=== PATIENT | female | born 1935 | race Caucasian/White ===

== ENCOUNTER 2016-10-31 10:29 | Observation (INO) | payer MEDICARE, OTHER ==
[~2016-10-31] VITALS: Ht 177.8 cm; Wt 114.0 kg
[~2016-10-31 10:29] MED LIST: ACIPHEX20 MG OR; ALL DAY ALLG10 M1 PO; ALPRAZOLAM0.5 MG PO; ALTOPREV20 MG OR; ANTIVERT OR; ARTHRITIS PAIN650 MG PO; ARTIFICIAL TEARS OU; ASPIRIN EC81 MG PO; ASPIRIN LOW81 MG OR; ASPIRIN325 M1 OR; ASPIRIN325 MG OR; ASPIRIN81 MG PO; ATIVAN0.5 MG PO; AVELOX400 MG PO; B-12100 MCG OR; BACLOFEN10 MG PO; BACTRIM DS1 TAB PO; BANOPHEN25 M1 PO; BIOTENE DRY MT; BL ADULT ASA81 MG OR; C 250 PO; CAPOTEN12.5 MG PO; CAPTOPRIL12.5 MG PO; CARAFATE1 G1 OR; CELEBREX100 M1 PO; CELEBREX100 MG PO; CELEBREX200 MG OR; CELEBREX200 MG PO; CETIRIZINE5 MG OR; CHOLEST OFF OR; CIPRO500 MG OR; CIPROFLOXACIN500 M1 PO; CLONAZEPAM0.5 MG PO; CORTISPORIN OP7.5 ML OP; CRANBERRY1 TAB OR; CRESTOR10 MG OR; CYCLOBENZAPR10 MG PO; DARVOCET-N 100100 MG OR; DEMADEX10 MG OR; DICLOFENAC75 MG PO; DIPHEN/ATROP2.5 MG OR; DULCOLAX5 MG PO; DURAGESIC25 MCG/PAT TD; ERYTHROM ETH400 MG OR; FEOSOL65 MG PO; FERROUS SULF325 M1 PO; FISH OIL1000 MG OR; FISH OIL1000 MG PO; FLEXERIL OR; FLEXERIL PO; FLEXERIL10 MG PO; FLEXERIL5 M1 PO; FLEXERIL5 MG PO; FLONASE NASAL50 MCG; FLUTICASONE50 MCG; FLUZONE SPLT1 M1 IM; GARLIC OIL1000 M1 OR; GARLIC1000 MG OR; GLUCOSAMINE1 TA1 OR; GLUCOSAMINE500 M1 OR; HALFPRIN162 MG OR; HYDROCO/AP10 MG/660 OR; IMDUR60 MG OR; IRON325 M1 PO; K-99 OR; KLONOPIN0.5 MG PO; KLONOPIN1 MG OR; KLONOPIN1 MG PO; KLOR-CON M2020 MEQ PO; LASIX 40 MG TAB40 MG PO; LASIX 40 MG40 MG/TAB PO; LASIX40 MG OR; LASIX40 MG PO; LIDODERM5 % EX; LIDODERM5 % TD; LIORESAL10 MG/TA1 PO; LISINOPRIL10 MG PO; LISINOPRIL5 MG PO; LORATADINE D PO; LORATADINE10 M1 PO; LORTAB 10 PO; LORTAB 5 OR; LORTAB 7.5 OR; LORTAB 7.5 PO; LORTAB 7.5-3251 TAB PO; LORTAB 7.57.5 MG PO; LORTAB 7.57.5 MG/TAB OR; LOVASTATIN10 MG PO; LOVASTATIN20 M1 PO; LOVASTATIN40 M1 OR; LOVASTATIN40 M1 PO; LOVASTATIN40 MG OR; LOVASTATIN40 MG PO; MEDDOSEPAK OR; MELOXICAM7.5 MG PO; MEVACOR20 MG OR; MEVACOR40 MG PO; MINITRAN0.2 MG/HR TD; MINITRAN0.4 MG/HR TD; MYKIDZ IRO15 MG/1.5 PO; NAPROSYN500 MG OR; NAPROSYN500 MG PO; NASONEX50 MCG/AC; NITRO-DUR0.4 MG/HR TD; NITROGLYCER SL; NITROGLYCER0.4 MG SL; NITROGLYCER0.4 MG/HR TD; NITROSTAT0.4 MG PO; NITROSTAT0.4 MG SL; OCUVITE ADULT FORMUL PO; OMEGA-31000 MG OR; OMEPRAZOLE10 MG OR; OMEPRAZOLE10 MG PO; OMEPRAZOLE20 M1 PO; OMEPRAZOLE20 MG PO; OMEPRAZOLE40 MG PO; OSCAL 500/1 TAB PO; OSTEO BI-FLX OR; OSTEO BI-FLX PO; PAROXETINE20 MG PO; PAXIL20 MG OR; PAXIL30 MG PO; PAXIL40 MG OR; PERCOCET 5/325M1 TAB PO; POTASSIUM99 MG OR; POTASSIUM99 MG PO; PRILOSEC10 MG OR; PRILOSEC20 MG OR; PRILOSEC20 MG PO; PRILOSEC20 MG/CAP PO; PRIMIDONE250 MG OR; PROPAFENONE150 M1 PO; PROPAFENONE150 MG PO; PROPO-N/APAP1 TA1 OR; PROTONIX40 M2 PO; PROTONIX40 MG OR; PROTONIX40 MG PO; RANITIDINE150 M1 PO; REFRES1 OU; REGLAN10 MG PO; REGLAN5 MG OR; REMIFEMIN OR; RYTHMOL150 MG PO; SM ASPIRIN81 M1 OR; ST JOSEPH75 MG OR; STOOL SOFTENER100 MG PO; TIZANIDINE HCL4 M1 PO; TORSEMIDE10 M1 OR; TORSEMIDE10 MG PO; TRAMADOL HCL50 MG PO; TRANXENE T15 MG PO; TRAZODONE HCL50 MG PO; TRAZODONE150 MG PO; TRAZODONE50 MG PO; TYLENOL 500MG TAB PO; TYLENOL PM OR; ULTRACET OR; ULTRAM50 M1 PO; ULTRAM50 MG OR; ULTRAM50 MG PO; VALTREX1 GM OR; VITAMI18 PO; VITAMIN B-12500 MC2 PO; XANAX0.5 MG OR; ZANTAC150 M1 OR; ZANTAC150 MG OR; ZITHROMAX250 MG PO; ZOFRAN ODT4 MG PO; [UNRECOGNIZED DRUG - OTHER]; [UNRECOGNIZED DRUG - OTHER] OR; [UNRECOGNIZED DRUG - OTHER] PO; asa OR
--- NOTE | 2016-10-31 10:30 | NUR ---
PT ARRIVED VIA EMS FROM HOME. VSS. ASSESSMENT PERFORMED. CALL LIGHT IN REACH.
[2016-10-31 11:59] LABS: HEMATOCRIT 33.4 % (37.0-47.0); HEMOGLOBIN 10.8 g/dl (12.0-16.0); IMMATURE GRANULOCYTES 1.3 % (0.0-1.0); MEAN CELL VOLUME 97.7 fL CALC (80.0-100.0); MEAN CORPUSCULAR HGB 31.6 pG CALC (26.0-32.0); MEAN CORPUSCULAR HGB CONC 32.3 g/L CALC (32.0-36.0); NEUT# 4.76 thou/uL (2.00-7.15); RED BLOOD COUNT 3.42 mill/uL (4.20-5.60); RED CELL DISTRI WIDTH 13.6 % (11.5-15.5)
[2016-10-31 12:11] LABS: ALBUMIN 3.1 g/dL (3.2-5.0); ALKALINE PHOSPHATASE 81 u/l (38-126); AMYLASE < 30 u/l (30-110); ANION GAP 13 (6-22 (CALC)); BILIRUBIN, TOTAL 0.3 mg/dL (0.0-1.4); BUN 19 mg/dL (8-23); BUN/CREATININE RATIO 30 (12-20 (CALC)); CALCIUM 7.3 mg/dL (8.4-10.2); CARBON DIOXIDE 23 mmol/l (22-30); CHLORIDE 111 mmol/l (95-108); CREATININE 0.6 mg/dL (0.5-1.0); GFR > 60 ML/MIN (>=60 (CALC)); GFR FOR AFR.AMER. > 60 ML/MIN (>=60 (CALC)); GLUCOSE 95 mg/dL (82-115); LIPASE 41 u/l (23-300); POTASSIUM 3.7 mmol/l (3.5-5.1); SGOT/AST 29 u/l (9-36); SGPT/ALT 28 u/l (11-66); SODIUM 142 mmol/l (137-146); TOTAL PROTEIN 6.1 g/dL (6.3-8.2)
[2016-10-31 12:22] LABS: MYOGLOBIN 14 ng/mL (0 - 62)
--- NOTE | 2016-10-31 12:30 | NUR ---
PT MEDICATED WITH CIPRO AND IVF INITIATED.
--- NOTE | 2016-10-31 13:00 | NUR ---
PT RESTING ON STRETCHER, C/O HEADACHE. MD NOTIFIED. NO ORDERS RECEIVED
--- NOTE | 2016-10-31 14:00 | NUR ---
ASSUMED CARE OF PATIENT PATIENT RESTING AWAITING LAB AND RADIOLOGY RESULTS PATIENT DENIES ANY PAIN AT THIS TIME
--- NOTE | 2016-10-31 14:45 | NUR ---
PATIENT RESTING AWAITING RADIOLOGY RESULTS PATIENT DENIES ANY DISCOMFORT AT THIS TIME
--- NOTE | 2016-10-31 15:45 | NUR ---
PATIENT RESTING AWAITING LAB RESULTS DENIES ANY PAIN AT THIS TIME PATIENT AMBULATED TO RESTROOM WITH STEADY GAIT
[2016-10-31 16:01] LABS: URINE BILIRUBIN - DIPSTICK NEGATIVE (NEGATIVE); URINE BLOOD DIPSTICK SMALL (NEGATIVE); URINE COLOR YELLOW; URINE GLUCOSE - DIPSTICK NEGATIVE (NEGATIVE); URINE KETONE NEGATIVE (NEGATIVE); URINE PH 6.5 (4.5-8.0); URINE PROTEIN - DIPSTICK NEGATIVE (NEG-TRACE); URINE UROBILINOGEN - DIPSTICK 0.2 E.U./dL (0.2)
[2016-10-31 16:24] LABS: URINE CLARITY CLOUDY; URINE LEUK ESTERASE SMALL (NEGATIVE); URINE NITRITE - DIPSTICK POSITIVE (Negative)
[2016-10-31 16:32] LABS: URINE SQUAMOUS EPITHELIAL CELL FEW EPI/hpf (0-FEW)
[2016-10-31 16:33] LABS: URINE BACTERIA FEW hpf
--- NOTE | 2016-10-31 16:45 | NUR ---
PATIENT RESTING AWAITING LAB RESULTS PATIENT HAS FOOD TRAY AT BEDSIDE AND IS EATING PATIENT DENIES ANY PAIN AT THIS TIME
--- NOTE | 2016-10-31 16:55 | NUR ---
SBAR PRINTED TO [id number] AT [id number].
--- NOTE | 2016-10-31 17:37 | NUR ---
PATIENT RESTING AWAITING ROOM PATIENT DENIES ANY PAIN OR DISCOMFORT AT THIS TIME
--- NOTE | 2016-10-31 18:00 | NUR ---
DINNER TRAY AT BEDSIDE PATIENT VOICES NO COMPLAINT AT THIS TIME
--- NOTE | 2016-10-31 18:10 | NUR ---
RECEIVED REPORT FROM LYDIA BANEGAS
[2016-10-31] MEDS ORDERED: TRAMADOL HCL50 MG PO (18:33)
--- NOTE | 2016-10-31 18:41 | NUR ---
PT BP 185/77, DR BAI NOTIFIED. ORDER RECEIVED FOR PT TO TAKE HER OWN LISINOPRIL 10 MG NOW.
--- NOTE | 2016-10-31 19:03 | NUR ---
REPORT PROVIDED TO LYDIA HAMPTON
--- NOTE | 2016-10-31 19:29 | NUR ---
PATIENT ARRIVED TO THE FLOOR VIA STRETCHER WITH ER STAFF IN ATTENDANCE. PATIENT IS AWAKE ALERT AND ORIENTEDX3. PATIENT ASSISTED FROM THE STRETCHER TO THE BED-UNSTEADY ON HER FEET AND C/O FEELING "DIZZY". TAKING VS AT THIS TIME. WILL CONT TO MONITOR.
[2016-10-31 19:33] VITALS: BP 168/73
--- NOTE | 2016-10-31 19:33 | NUR ---
TAKEN UPSTAIRS ON THE GURNEY BY THIS EDGE BRUSHER. RECEIVED BY BERTA FREEMAN AND KARYNA COATS.
--- NOTE | 2016-10-31 20:00 | NUR ---
PATIENT RESTING IN BED. PATIENT WITH RIGHT UPPER CHEST PORT-A-CATH ACCESSED WITH GOOD BLOOD RETURN. SITE APPEARS HEALTHY AT THIS TIME. PATIENT ORIENTED TO ROOM AND SURROUNDINGS. INSTRUCTED ON USE OF NURSE CALL LIGHT SYSTEM AND TV REMOTE. SAFETY PRECAUTIONS REVIEWED WITH PATIENT. CALL LIGHT IN REACH. WILL CONT TO MONITOR.
--- NOTE | 2016-10-31 22:30 | NUR ---
PM MEDS GIVEN ORDERED. IVF D51/2NS HUNG AND INFUSING AT 75CC/HR. PATIENT REFUSED NITRO PATCH ORDERED-STATES THAT SHE STOPPED IT APPROX 2 WEEKS AGO BECAUSE IT WAS GIVING HER HEADACHES AND THAT DR. ADAMES AWARE THAT SHE STOPPED IT. ASSISTED TO BR TO VOID AND SMALL FORMED BM-MORE STEADY ON HER FEET AT THIS TIME. PATIENT ALSO STATES THAT SHE GOT NO RELIEF FROM ULTRAM THAT SHE GOT EARLIER. RESTING IN BED. WILL CONT TO MONITOR.
[2016-10-31 23:52] VITALS: BP 121/59
--- NOTE | 2016-11-01 02:08 | NUR ---
PATIENT POSITIONED ON HER SIDE AND APPEARS SLEEPING AT THIS TIME. IVF PATENT AND INFUSINGA T 75CC/HR VIA RIGHT PORT. CALL LIGHT IN REACH. WILL CONT TO MONITOR.
--- NOTE | 2016-11-01 04:30 | NUR ---
PT IS REFUSING TO AN XRAY AT THIS TIME SAYS SHE WOULD GO A LITTLE LATER
[2016-11-01 05:18] LABS: HEMATOCRIT 34.5 % (37.0-47.0); IMMATURE GRANULOCYTES 0.5 % (0.0-1.0); MEAN CELL VOLUME 97.2 fL CALC (80.0-100.0); MEAN CORPUSCULAR HGB CONC 31.9 g/L CALC (32.0-36.0); NEUT# 4.68 thou/uL (2.00-7.15); RED BLOOD COUNT 3.55 mill/uL (4.20-5.60); RED CELL DISTRI WIDTH 13.5 % (11.5-15.5)
[2016-11-01 05:37] LABS: ALBUMIN 3.1 g/dL (3.2-5.0); ALKALINE PHOSPHATASE 72 u/l (38-126); ANION GAP 11 (6-22 (CALC)); BILIRUBIN, TOTAL 0.2 mg/dL (0.0-1.4); BUN 14 mg/dL (8-23); BUN/CREATININE RATIO 20 (12-20 (CALC)); CALCIUM 8.7 mg/dL (8.4-10.2); CALCULATED LDLCHOLESTEROL 113 mg/dL (62-129 (CALC)); CARBON DIOXIDE 26 mmol/l (22-30); CHLORIDE 108 mmol/l (95-108); CREATININE 0.7 mg/dL (0.5-1.0); GFR > 60 ML/MIN (>=60 (CALC)); GFR FOR AFR.AMER. > 60 ML/MIN (>=60 (CALC)); GLUCOSE 100 mg/dL (82-115); HDL CHOLESTEROL 45 mg/dL (>=40); POTASSIUM 4.4 mmol/l (3.5-5.1); SGOT/AST 21 u/l (9-36); SGPT/ALT 35 u/l (11-66); SODIUM 141 mmol/l (137-146); TOTAL CHOLESTEROL 189 mg/dl (0-199); TOTAL PROTEIN 5.8 g/dL (6.3-8.2); TOTAL TRIGLYCERIDES 150 mg/dl (30-149); VLDL CHOLESTROL 30 mg/dl (0-48 (CALC))
--- NOTE | 2016-11-01 05:49 | NUR ---
PATIENT APPEARS SLEEPING AT THIS TIME. CALL LIGHT IN REACH. WILL CONT TO MONITOR.
--- NOTE | 2016-11-01 07:00 | NUR ---
RECEIVED BEDSIDE REPORT FROM BERTA FREEMAN. PT IN BATHROOM BEING ASSISTED BY MARCO NICHOLSON TO SHOWER. RESPS EVEN AND UNLABORED ON ROOM AIR, TELE MONITOR IN PLACE. PLAN OF CARE DISCUSSED. SAFETY PRECAUTIONS REINFORCED. BED IN LOWEST POSITION WITH WHEELS LOCKED. CALL LIGHT WITHIN REACH. WILL CONTINUE TO MONITOR.
--- NOTE | 2016-11-01 08:20 | NUR ---
PT SITTING IN BEDSIDE RECLINER. DR ADAMES IN TO SEE PT, NEW ORDERS RECEIVED.
[2016-11-01 08:50] VITALS: BP 122/68
[2016-11-01 11:08] VITALS: BP 111/61
--- NOTE | 2016-11-01 12:00 | NUR ---
IN HIGH FOWLERS EATING LUNCH, VISITOR AT BEDSIDE. RESPS EVEN AND UNLABORED ON ROOM AIR, TELE MONITOR IN PLACE. VOICES NO C/O AT THIS TIME. PORT TO RIGHT UPPER CHEST INFUSING WITHOUT DIFFICULTY, SITE APPEARS HEALTHY. CALL LIGHT WITHIN REACH. WILL CONTINUE TO MONITOR.
--- NOTE | 2016-11-01 13:45 | NUR ---
MEDICATED WITH TRAMADOL PO FOR C/O 12/26 NECK AND SHOULDER PAIN. WILL CONTINUE TO MONITOR. CALL LIGHT WITHIN REACH.
[2016-11-01 15:30] VITALS: BP 118/62
--- NOTE | 2016-11-01 16:33 | NUR ---
RESTING IN BED WITH EYES CLOSED, AWAKENS EASILY. RESPS EVEN AND UNLABORED ON ROOM AIR, TELE MONITOR IN PLACE. DENEIS PAIN AT THIS TIME. CALL LIGHT WITHIN REACH. ENCOURAGED PT TO CALL FOR ANY NEEDS.
--- NOTE | 2016-11-01 17:10 | NUR ---
C/O "CHEST PRESSURE" OF SUDDEN ONSET. PHONE CALL TO DR ADAMES. NEW ORDERS RECEIVED. STAT EKG, ROSANGELA COCKTAIL PO, XANAX PO.
--- NOTE | 2016-11-01 17:50 | NUR ---
MEDICATED WITH ROSANGELA COCKTAIL PO AND XANAX 0.5 PO FOR RELIEF OF "CHEST PRESSURE." REPORTS FEELING BETTER AFTER HAVING PASSED GAS. EKG COMPLETED BY RESP THERAPY.
[2016-11-01 19:40] VITALS: BP 121/57
--- NOTE | 2016-11-01 19:45 | NUR ---
PATIENT RESTING IN BED AT THIS TIME-AWAKE ALERT AND ORIENTEDX3. PATIENT STATES THAT HER FOOD IS NOT GOING DOWN RIGHT AND IS ASKING FOR A "TUBE INTO HER STOMACH". EXPLAINED TO PATIENT THAT USUALLY WE TRY OTHER ALTERATIVE METHODS OF TREATMENT BEFORE PLACING A NG TUBE. WILL CALL DR. ADAMES FOR FURTHER TREATMENT. PATIENT STATES THAT SHE DID HAVE A FORMED BM TODAY. ABD IS SOFT WITH BS+. PATIENT CONT TO HAVE SEVERE SUZANNA LE EDEMA WITH THE RIGHT GREATER THAN THE LEFT AT THIS TIME. PATIENT WITH IVF TO RIGHT UPPER CHEST PORT AT 75CC/HR. SITE APPEARS HEALTHY AT THIS TIME. SAFETY PRECAUTIONS REINFORCED. CALL LIGHT IN REACH. WILL CONT TO MONITOR.
--- NOTE | 2016-11-01 20:00 | NUR ---
BED ALARMS ARE CONSTANTLY GOING OFF-WHEN REAPPLIED PATIENT EITHER ALARMS THEM AGAIN OR TAKES THEM AND/OR HER TELE OFF. PATIENT WITH IV SITE TO RIGHT WRIST INTACT WITH IVF D51/2NS PATENT AND INFUSING AT 75CC/HR. SITE APPEARS HEALTHY AT THIS TIME. DR. ADAMES CALLED AND ORDERS RECIEVED. AWAITING PROFILE ON EMAR. WILL MEDICATE WHEN ABLE. BED ALRMS IN PLACE. WILL CONT TO MONITOR.
--- NOTE | 2016-11-01 20:23 | NUR ---
PATIENT ASSISTED TO VOID CLEAR YELLOW URINE. PATIENT IS AGITATED AND RESTLESS. PATIENT IS VERY [place] AND TALKING TO STAFF INAPPROPRIATELY. PATIENT IS CONFUSED TO PLACE AND TIME. CONSTANTLY REPEATING THE QUESTIONS WITH THE STAFF. PATIENT ASSISTED BACK TO BED. PATIENT MEDICATED FOR AGITATION WITH ATIVAN 1MG IVP ORDERED. CALL LIGHT IN REACH. BED ALARMSX2 IN PLACE FOR PATIENT SAFETY. WILL CONT TO MONITOR.
--- NOTE | 2016-11-01 21:08 | NUR ---
PATIENT MEDICATED WITH ZOFRAN 4MG IVP ORDERED FOR NAUSEA. PATIENT OINSTRUCTED NPO EXCEPT FOR SIP OF H2O WITH PO MEDS. IVF INCREASED TO 100CC/HR ORDERD. PATIENT MEDICATED WITH ULTRAM FOR CHEST AND EPIGASTRIC PAIN ORDERED. PATIENT CONT TO REFUSE NITRO PATCH THAT IS ORDERED IT CAUSES HER HEADACHES. ASSISTED UP TO BR TO VOID AND THEN BACK TO BED. SAFETY PRECAUTIONS REINFORCED. CALL LIGHT IN REACH. WILL CONT TO MONITOR.
--- NOTE | 2016-11-01 22:07 | NUR ---
APPEARS SLEEPING AT THIS TIME POSITIONED ON HER SIDE WITH EYES CLOSED. CALL LIGHT IN REACH. WILL CONT TO MONITOR.
[2016-11-01 23:50] VITALS: BP 132/69
--- NOTE | 2016-11-02 00:27 | NUR ---
PATIENT CALLED AND ASSISTED TO BR TO VOID AND THEN RETURNED TO BED. PATIENT REMAINS NPO AT THIS TIME. IVF ORDERED. SAFETY PRECAUTIONS REINFORCED. CALL LIGHT IN REACH. WILL CONT TO MONITOR.
[2016-11-02 04:00] VITALS: BP 112/61
--- NOTE | 2016-11-02 04:41 | NUR ---
PATIENT ASSISTED TO THE BR TO VOID AND THEN BACK TO BED. LAB WORK DRAWN FROM RIGHT UPPER CHEST PORT WITHOUT ANY DIFFICULTY. PORT FLUSHED PER [facility] PROTOCOL. IVF AT 100CC/HR. PATIENT REMAINS NPO ORDERED. NO FURTHER COMPLAINTS OF PAIN AT THIS TIME. SAFETY PRECAUTIONS REINFORCED. CALL LIGHT IN REACH. WILL CONT TO MONITOR.
[2016-11-02 05:23] LABS: HEMATOCRIT 37.9 % (37.0-47.0); IMMATURE GRANULOCYTES 0.4 % (0.0-1.0); MEAN CELL VOLUME 97.9 fL CALC (80.0-100.0); MEAN CORPUSCULAR HGB CONC 31.7 g/L CALC (32.0-36.0); NEUT# 4.02 thou/uL (2.00-7.15); RED BLOOD COUNT 3.87 mill/uL (4.20-5.60); RED CELL DISTRI WIDTH 13.8 % (11.5-15.5)
[2016-11-02 05:49] LABS: ANION GAP 15 (6-22 (CALC)); BUN 9 mg/dL (8-23); BUN/CREATININE RATIO 12 (12-20 (CALC)); CARBON DIOXIDE 26 mmol/l (22-30); CHLORIDE 105 mmol/l (95-108); CREATININE 0.7 mg/dL (0.5-1.0); GFR > 60 ML/MIN (>=60 (CALC)); GFR FOR AFR.AMER. > 60 ML/MIN (>=60 (CALC)); GLUCOSE 103 mg/dL (82-115); POTASSIUM 4.5 mmol/l (3.5-5.1); SODIUM 141 mmol/l (137-146)
--- NOTE | 2016-11-02 07:00 | NUR ---
RECEIVED BEDSIDE REPORT FROM BERTA FREEMAN. RESTING ON LEFT SIDE WITH EYES CLOSED, AWAKENS EASILY. RESPS EVEN AND UNLABORED ON ROOM AIR, TELE MONITOR IN PLACE. REINFORCED NPO STATUS. DENIES NAUSEA OR ABD PAIN. PORT RU CHEST INFUSING WITHOUT DIFFICULTY, SITE APPEARS HEALTHY. PLAN OF CARE DISCUSSED. SAFETY PRECAUTIONS REINFORCED. BED IN LOWEST POSITION WITH WHEELS LOCKED. CALL LIGHT WITHIN REACH. WILL CONTINUE TO MONITOR.
[2016-11-02 07:51] VITALS: BP 128/66
--- NOTE | 2016-11-02 08:30 | NUR ---
DR ADAMES IN WITH PT, NEW ORDERS RECEIVED.
[2016-11-02 10:06] LABS: TSH, 3RD GENERATION 4.04 uIU/mL (0.47 - 4.68)
[2016-11-02 11:25] VITALS: BP 127/62
--- NOTE | 2016-11-02 12:55 | NUR ---
TO RADIOLOGY IN STABLE CONDITION VIA WHEELCHAIR ACCOMPANIED BY VOLUNTEER.
--- NOTE | 2016-11-02 13:32 | NUR ---
FROM RADIOLOGY VIA WHEELCHAIR ACCOMPANIED BY VOLUNTEER.
--- NOTE | 2016-11-02 14:00 | NUR ---
RESTING IN SUPINE POSITION. C/O 5/10 LEFT FLANK PAIN. MEDICATED WITH TRAMADOL 50MG PO FOR RELIEF. PORT RIGHT UPPER CHEST INFUSING WELL, SITE APPEARS HEALTHY. CALL LIGHT WITHIN REACH.
[2016-11-02 15:26] VITALS: BP 133/70
--- NOTE | 2016-11-02 18:00 | NUR ---
DR ADAMES IN TO SEE PT, NEW ORDERS RECEIVED.
--- NOTE | 2016-11-02 18:25 | NUR ---
TOLERATING FULL LIQUID DIET WITHOUT C/O NAUSEA OR DYSPHAGIA.
[2016-11-02 19:35] VITALS: BP 121/61
--- NOTE | 2016-11-02 20:00 | NUR ---
PATIENT RESTING IN BED AT THIS TIME. AWAKE ALERT AND ORIENTEDX3. PATIENT WITH RIGHT UPPER CHEST PORT WITH IVF D51/2NS PATENT AND INFUSING AT 60CC/HR. PATIENT STATES THAT SHE IS NOW TAKING FULL LIQUID DIET AND DID TOLERATE WELL AT DINNER-NO FURTHER C/O GI SYMPTOMS TONIGHT. SAFETY PRECAUTIONS REINFORCED. CALL LIGHT IN REACH. WILL CONT TO MONITOR.
--- NOTE | 2016-11-02 21:34 | NUR ---
PATIENT STATES NO IMPROVEMENT OF BACK TIME AT THIS TIME EVEN AFTER TAKING ULTRAM ORDERED-STILL 12/26. CALL LIGHT IN REACH. WILL CONT TO MONITOR.
--- NOTE | 2016-11-02 22:58 | NUR ---
LAB WORK DRAWN ORDERED-AWAITING RESULTS. PATIENT BREATHING IS IMPROVED AT THIS TIME. PATIENT MEDICATED WITH XANAX ORDERED AND WITH SONATA FOR SLEEP. WILL CONT TO MONITOR.
[2016-11-02 23:48] VITALS: BP 114/62
--- NOTE | 2016-11-03 00:19 | NUR ---
PATIENT APPEARS SLEEPING AT THIS TIME. PATIENT POSITIONED ON HER SIDE WITH EYES CLOSED. CALL LIGHT IN REACH. WILL CONT TO MONITOR.
[2016-11-03 03:20] VITALS: BP 113/60
--- NOTE | 2016-11-03 04:24 | NUR ---
PATIEMT APPEARS SLEEPING AT THIS TIME WITH EYES CLOSED. CALL LIGHT IN REACH. WILL CONT TO MONITOR.
--- NOTE | 2016-11-03 07:00 | NUR ---
RECEIVED BEDSIDE REPORT FROM BERTA FREEMAN. PT SITTING IN BEDSIDE RECLINER WITH BILAT FEET ELEVATED. RESPS EVEN AND UNLABORED ON ROOM AIR, TELE MONITOR IN PLACE. PORT RIGHT UPPER CHEST INFUSING WITHOUT DIFFICULTY, SITE APPEARS HEALTHY. DENIES PAIN OR DISCOMFORT. PLAN OF CARE DISCUSSED. SAFETY PRECAUTIONS REINFORCED. BED IN LOWEST POSITION WITH WHEELS LOCKED. CALL LIGHT WITHIN REACH. ENCOURAGED PT TO CALL FOR ANY NEEDS.
[2016-11-03 08:40] VITALS: BP 114/58
--- NOTE | 2016-11-03 08:55 | NUR ---
DR ADAMES IN TO SEE PT, NEW ORDERS RECEIVED.
[2016-11-03] MEDS ORDERED: MEVACOR40 MG PO (09:04)
[2016-11-03] MEDS ORDERED: NITROSTAT0.4 MG SL (09:04)
[2016-11-03] MEDS ORDERED: PROPAFENONE150 M1 PO (09:04)
[2016-11-03] MEDS ORDERED: ARTIFICIAL TEARS OU (09:05)
[2016-11-03] MEDS ORDERED: PRILOSEC20 MG PO (09:06)
[2016-11-03] MEDS ORDERED: OCUVITE ADULT FORMUL PO (09:06)
[2016-11-03] MEDS ORDERED: PROTONIX40 MG PO (09:11)
[2016-11-03 09:20] VITALS: BP 114/58
--- NOTE | 2016-11-03 12:00 | NUR ---
PORT TO RIGHT UPPER CHEST DEACCESSED PER HOSPITAL POLICY.
--- NOTE | 2016-11-03 13:10 | NUR ---
Discharge instructions given. Patient verbalizes understanding of same. Discharged in stable condition via Wheelchair to Home with family. All belongings sent with pt.
== END 2016-11-03 13:10 | disposition home or self-care (01) ==
LOC: ENPENDDIS → ED 10:29 → ED-I 16:33 → ED 16:48 → MS2 16:49
PROVIDERS: Emergency Medicine; ADMIT Internal Medicine Geriatric Medicine; ATTEND Internal Medicine Geriatric Medicine
DX: R07.89 Other chest pain (principal); B34.9 Viral infection, unspecified; K22.0 Achalasia of cardia; Q39.8 Other congenital malformations of esophagus; I12.9 Hypertensive chronic kidney disease with stage 1 through stage 4 chronic kidney disease, or unspecified chronic kidney disease; E11.22 Type 2 diabetes mellitus with diabetic chronic kidney disease; N18.9 Chronic kidney disease, unspecified; I48.91 Unspecified atrial fibrillation; K21.9 Gastro-esophageal reflux disease without esophagitis; F41.9 Anxiety disorder, unspecified; F32.9 Major depressive disorder, single episode, unspecified; E03.9 Hypothyroidism, unspecified; M19.012 Primary osteoarthritis, left shoulder; E78.5 Hyperlipidemia, unspecified; M54.9 Dorsalgia, unspecified; E86.0 Dehydration; M17.12 Unilateral primary osteoarthritis, left knee; R13.10 Dysphagia, unspecified; Z95.0 Presence of cardiac pacemaker; Z87.11 Personal history of peptic ulcer disease

== ENCOUNTER 2016-12-25 05:53 | Observation (INO) | payer MEDICARE, OTHER ==
[~2016-12-25] VITALS: Ht 180.3 cm; Wt 106.6 kg
[2016-12-25] MEDS ORDERED: LASIX 40 MG TAB40 MG PO (06:19)
[2016-12-25] MEDS ORDERED: TRAZODONE50 MG PO (06:20)
[2016-12-25] MEDS ORDERED: LISINOPRIL10 M1 PO (06:20)
[2016-12-25] MEDS ORDERED: ASPIRIN 81 LOW81 MG PO (06:21)
[2016-12-25] MEDS ORDERED: METOLAZONE2.5 MG PO (06:22)
[2016-12-25] MEDS ORDERED: DESYREL50 MG PO (06:23)
[2016-12-25] MEDS ORDERED: GNP POTASSIUM99 MG PO (06:23)
[2016-12-25 06:34] LABS: HEMOGLOBIN 12.8 g/dl (12.0-16.0); IMMATURE GRANULOCYTES 0.4 % (0.0-1.0); MEAN CELL VOLUME 93.8 fL CALC (80.0-100.0); MEAN CORPUSCULAR HGB 30.8 pG CALC (26.0-32.0); MEAN CORPUSCULAR HGB CONC 32.8 g/L CALC (32.0-36.0); NEUT# 4.73 thou/uL (2.00-7.15); RED BLOOD COUNT 4.16 mill/uL (4.20-5.60); RED CELL DISTRI WIDTH 13.6 % (11.5-15.5)
[2016-12-25 06:48] LABS: ALBUMIN 4.3 g/dL (3.2-5.0); ALKALINE PHOSPHATASE 97 u/l (38-126); AMYLASE 47 u/l (30-110); ANION GAP 16 (6-22 (CALC)); BILIRUBIN, TOTAL 0.5 mg/dL (0.0-1.4); BUN 24 mg/dL (8-23); BUN/CREATININE RATIO 27 (12-20 (CALC)); CALCIUM 9.2 mg/dL (8.4-10.2); CARBON DIOXIDE 28 mmol/l (22-30); CHLORIDE 101 mmol/l (95-108); CREATININE 0.9 mg/dL (0.5-1.0); GFR 60 ML/MIN (>=60 (CALC)); GFR FOR AFR.AMER. > 60 ML/MIN (>=60 (CALC)); GLUCOSE 125 mg/dL (82-115); LIPASE 53 u/l (23-300); POTASSIUM 4.1 mmol/l (3.5-5.1); SGOT/AST 35 u/l (9-36); SGPT/ALT 42 u/l (11-66); SODIUM 141 mmol/l (137-146); TOTAL PROTEIN 7.9 g/dL (6.3-8.2)
[2016-12-25 07:00] LABS: MYOGLOBIN 32 ng/mL (0 - 62)
[2016-12-25 08:42] LABS: URINE BILIRUBIN - DIPSTICK NEGATIVE (NEGATIVE); URINE BLOOD DIPSTICK NEGATIVE (NEGATIVE); URINE CLARITY CLEAR; URINE COLOR YELLOW; URINE GLUCOSE - DIPSTICK NEGATIVE (NEGATIVE); URINE KETONE NEGATIVE (NEGATIVE); URINE LEUK ESTERASE NEGATIVE (NEGATIVE); URINE NITRITE - DIPSTICK NEGATIVE (Negative); URINE PH 5.5 (4.5-8.0); URINE PROTEIN - DIPSTICK NEGATIVE (NEG-TRACE); URINE UROBILINOGEN - DIPSTICK 0.2 E.U./dL (0.2)
[2016-12-25 09:28] VITALS: BP 147/84
[2016-12-25 15:30] VITALS: BP 130/71
[2016-12-25 19:00] VITALS: BP 136/76
[2016-12-25 23:26] VITALS: BP 129/66
[2016-12-26 04:15] VITALS: BP 155/75
[2016-12-26 07:49] VITALS: BP 143/59
[2016-12-26 09:41] LABS: HEMATOCRIT 39.2 % (37.0-47.0); HEMOGLOBIN 12.7 g/dl (12.0-16.0); IMMATURE GRANULOCYTES 0.4 % (0.0-1.0); MEAN CELL VOLUME 94.9 fL CALC (80.0-100.0); MEAN CORPUSCULAR HGB 30.8 pG CALC (26.0-32.0); MEAN CORPUSCULAR HGB CONC 32.4 g/L CALC (32.0-36.0); NEUT# 4.21 thou/uL (2.00-7.15); RED BLOOD COUNT 4.13 mill/uL (4.20-5.60); RED CELL DISTRI WIDTH 13.8 % (11.5-15.5)
[2016-12-26 10:00] LABS: ALBUMIN 4.2 g/dL (3.2-5.0); ALKALINE PHOSPHATASE 88 u/l (38-126); ANION GAP 14 (6-22 (CALC)); BILIRUBIN, TOTAL 0.5 mg/dL (0.0-1.4); BUN 22 mg/dL (8-23); BUN/CREATININE RATIO 29 (12-20 (CALC)); CALCIUM 8.8 mg/dL (8.4-10.2); CALCULATED LDLCHOLESTEROL 159 mg/dL (62-129 (CALC)); CARBON DIOXIDE 28 mmol/l (22-30); CHLORIDE 101 mmol/l (95-108); CHOLESTEROL HDL RATIO 4.3 (<4.4 (CALC)); CREATININE 0.8 mg/dL (0.5-1.0); GFR > 60 ML/MIN (>=60 (CALC)); GFR FOR AFR.AMER. > 60 ML/MIN (>=60 (CALC)); GLUCOSE 132 mg/dL (82-115); HDL CHOLESTEROL 57 mg/dL (>=40); SGOT/AST 35 u/l (9-36); SGPT/ALT 44 u/l (11-66); SODIUM 140 mmol/l (137-146); TOTAL CHOLESTEROL 245 mg/dl (0-199); TOTAL PROTEIN 7.3 g/dL (6.3-8.2); TOTAL TRIGLYCERIDES 144 mg/dl (30-149); VLDL CHOLESTROL 29 mg/dl (0-48 (CALC))
[2016-12-26 11:11] VITALS: BP 143/78
[2016-12-26 15:24] VITALS: BP 136/69
== END 2016-12-26 18:10 | disposition home or self-care (01) ==
LOC: ENPENDDIS → ED 05:53 → ED-I 08:18 → ED 08:45 → MS2 08:46
PROVIDERS: ADMIT Internal Medicine Geriatric Medicine; ATTEND Internal Medicine Geriatric Medicine
DX: R07.89 Other chest pain (principal); I25.119 Atherosclerotic heart disease of native coronary artery with unspecified angina pectoris; I48.91 Unspecified atrial fibrillation; K21.9 Gastro-esophageal reflux disease without esophagitis; K27.9 Peptic ulcer, site unspecified, unspecified as acute or chronic, without hemorrhage or perforation; E03.9 Hypothyroidism, unspecified; E11.22 Type 2 diabetes mellitus with diabetic chronic kidney disease; I12.9 Hypertensive chronic kidney disease with stage 1 through stage 4 chronic kidney disease, or unspecified chronic kidney disease; N18.9 Chronic kidney disease, unspecified; E78.5 Hyperlipidemia, unspecified; M19.012 Primary osteoarthritis, left shoulder; K22.0 Achalasia of cardia; T82.598A Other mechanical complication of other cardiac and vascular devices and implants, initial encounter; Y83.8 Other surgical procedures as the cause of abnormal reaction of the patient, or of later complication, without mention of misadventure at the time of the procedure; Z95.0 Presence of cardiac pacemaker

== ENCOUNTER 2017-03-30 08:36 | Emergency (ER) | payer MEDICARE, OTHER ==
[~2017-03-30] VITALS: Ht 180.3 cm; Wt 109.0 kg
[~2017-03-30 08:36] MED LIST changes: +ASPIRIN 81 LOW81 MG PO; +DESYREL50 MG PO; +GNP POTASSIUM99 MG PO; +LISINOPRIL10 M1 PO; +METOLAZONE2.5 MG PO
[2017-03-30 11:05] LABS: HEMATOCRIT 37.6 % (37.0-47.0); IMMATURE GRANULOCYTES 0.5 % (0.0-1.0); MEAN CELL VOLUME 95.2 fL CALC (80.0-100.0); MEAN CORPUSCULAR HGB 30.4 pG CALC (26.0-32.0); MEAN CORPUSCULAR HGB CONC 31.9 g/L CALC (32.0-36.0); NEUT# 4.45 thou/uL (2.00-7.15); RED BLOOD COUNT 3.95 mill/uL (4.20-5.60); RED CELL DISTRI WIDTH 13.9 % (11.5-15.5)
[2017-03-30 11:43] LABS: ALBUMIN 4.1 g/dL (3.2-5.0); ALKALINE PHOSPHATASE 80 u/l (38-126); ANION GAP 16 (6-22 (CALC)); BILIRUBIN, TOTAL 0.7 mg/dL (0.0-1.4); BUN 15 mg/dL (8-23); BUN/CREATININE RATIO 20 (12-20 (CALC)); CALCIUM 9.2 mg/dL (8.4-10.2); CARBON DIOXIDE 22 mmol/l (22-30); CHLORIDE 108 mmol/l (95-108); CREATININE 0.8 mg/dL (0.5-1.0); GFR > 60 ML/MIN (>=60 (CALC)); GFR FOR AFR.AMER. > 60 ML/MIN (>=60 (CALC)); GLUCOSE 110 mg/dL (82-115); POTASSIUM 4.6 mmol/l (3.5-5.1); SGOT/AST 33 u/l (9-36); SGPT/ALT 41 u/l (11-66); SODIUM 141 mmol/l (137-146); TOTAL PROTEIN 7.3 g/dL (6.3-8.2)
[2017-03-30] MEDS ORDERED: FLEXERIL PO (12:18)
[2017-03-30] MEDS ORDERED: ULTRAM50 M1 PO (12:18)
[2017-03-30 12:33] VITALS: BP 178/87
== END 2017-03-30 13:24 | disposition home or self-care (01) ==
LOC: ED 08:36
PROVIDERS: Emergency Medicine
DX: M17.12 Unilateral primary osteoarthritis, left knee (principal); M47.22 Other spondylosis with radiculopathy, cervical region; M79.605 Pain in left leg; R22.42 Localized swelling, mass and lump, left lower limb; I10 Essential (primary) hypertension; Z95.0 Presence of cardiac pacemaker

== ENCOUNTER 2017-08-17 19:12 | Inpatient (IN) | payer MEDICARE, OTHER ==
[~2017-08-17] VITALS: Ht 180.3 cm; Wt 117.6 kg
--- NOTE | 2017-08-17 19:13 | NUR ---
PATIENT TO ROOM 6 VIA EMS STRETCHER. UNDRESSED INTO A GOWN. PLACED ON MONITOR. MD AT BEDSIDE FOR AVAL. TRIAGE COMPELTED AT BEDSIDE.
--- NOTE | 2017-08-17 19:15 | NUR ---
UNABLE TO RECONCILE MEDICATIONS. PATIENT STATES SHE DOESN'T KNOW HER MEDS AND HER L[facility]LORD WILL BE BRINGING HER LIST IN.
--- NOTE | 2017-08-17 19:30 | NUR ---
PT REMAINS STABLE. DENIES ANY CHANGE IN STATUS. PT RESTING WITH MONITOR IN PLACE. DENIES ANY CHANGE IN STATUS.
--- NOTE | 2017-08-17 20:00 | NUR ---
PT REASSESSMENT COMPLETE. PT DENIES ANY NEEDS AT THIS TIME. CALL LIGHT WITHIN REACH
[2017-08-17 20:19] LABS: HEMATOCRIT 42.2 % (37.0-47.0); HEMOGLOBIN 13.6 g/dl (12.0-16.0); IMMATURE GRANULOCYTES 0.4 % (0.0-1.0); MEAN CELL VOLUME 92.7 fL CALC (80.0-100.0); MEAN CORPUSCULAR HGB 29.9 pG CALC (26.0-32.0); MEAN CORPUSCULAR HGB CONC 32.2 g/L CALC (32.0-36.0); NEUT# 6.91 thou/uL (2.00-7.15); RED BLOOD COUNT 4.55 mill/uL (4.20-5.60); RED CELL DISTRI WIDTH 14.6 % (11.5-15.5)
--- NOTE | 2017-08-17 20:20 | NUR ---
PT DENIES ANY CHANGE IN STATUS. PT REMAINS STABLE. VISITOR AT BEDSIDE. PT REMAINS ON MONITOR.
[2017-08-17 20:32] LABS: ALBUMIN 4.5 g/dL (3.2-5.0); ALKALINE PHOSPHATASE 102 u/l (38-126); ANION GAP 17 (6-22 (CALC)); BILIRUBIN, TOTAL 0.7 mg/dL (0.0-1.4); BUN 18 mg/dL (8-23); BUN/CREATININE RATIO 20 (12-20 (CALC)); CARBON DIOXIDE 25 mmol/l (22-30); CHLORIDE 101 mmol/l (95-108); CREATININE 0.9 mg/dL (0.5-1.0); GFR 60 ML/MIN (>=60 (CALC)); GFR FOR AFR.AMER. > 60 ML/MIN (>=60 (CALC)); POTASSIUM 4.2 mmol/l (3.5-5.1); SGOT/AST 40 u/l (9-36); SGPT/ALT 49 u/l (11-66); SODIUM 139 mmol/l (137-146)
[2017-08-17 20:35] LABS: ACT PARTIAL THROMBO TIME 28.2 SECONDS (20.0-32.5); PROTHROMBIN TIME 10.9 SECONDS (9.0-12.5)
[2017-08-17 20:44] LABS: MYOGLOBIN 94 ng/mL (0 - 62)
--- NOTE | 2017-08-17 20:45 | NUR ---
PT MEDICATED PER MD ORDER. PT TOLERATES WELL.
--- NOTE | 2017-08-17 21:05 | NUR ---
PO FLUIDS REQUESTED BY PT. PT STATES PAIN IS "GONE" DENIES ANY ADDITIONAL COMPLAINTS
--- NOTE | 2017-08-17 21:27 | NUR ---
REPORT TO JANIYA, DENIES ANY ADDITIONAL QUESTIONS.
[2017-08-17 21:43] VITALS: BP 131/80
--- NOTE | 2017-08-17 21:43 | NUR ---
PT ADMITTED TO 2ND FLOOR RM 261 VIA STRETCHER ACCOMPANIED BY ER.RAY. PT STABLE, AMBULATED WITH SLOW STEADY GAIT TO BED. PT STATES SHE DIDN'T BRING HER CANE. ALERT AND ORIENTED X3, EDEMA NOTED TO BLE. STATES SHE REMAINS AT A 7/10 OF PAIN BUT DOES NOT WANT TO TAKE ANYTHING DUE TO "STOMACH UPSET" STATES SHE HAS ONLY EATEN BREAKFAST. DENIES BEING A DIABETIC, GIVEN A JELLO REQUESTED. ADMISSION ASSESSMENT COMPLETED. PT AGREES TO HAVE PNEUMONIA AND FLU VACC. CALL LIGHT IN REACH,CONTINUE TO MONITOR.
--- NOTE | 2017-08-17 21:45 | NUR ---
PT TRANSFERED TO 261 W/OUT INCIDENT.BEDSIDE REPORT TO JANIYA. DENIES ANY QUESTIONS UPON COMPLETION.
--- NOTE | 2017-08-17 23:14 | NUR ---
PT C/O 01/25 L RIB PAIN, TORADOL GIVEN. CALL LIGHT IN REACH,CONTINUE TO MONITOR.
[2017-08-18] VITALS (21 sets, daily range): BP systolic 103–164; BP diastolic 43–88
--- NOTE | 2017-08-18 00:30 | NUR ---
TROPONIN OBTAINED FROM PORT, VOICES NO NEEDS OR COMPLAINTS AT THIS TIME. CALL LIGHT IN REACH,CONTINUE TO MONITOR.
--- NOTE | 2017-08-18 04:01 | NUR ---
PT UP TO BATHROOM, UA OBTAINED. PT RETURNED TO BED C/O PAIN 01/25 TO L RIB. TORADOL GIVEN. CALL LIGHT IN REACH.CONTINUE TO MONITOR.
--- NOTE | 2017-08-18 06:00 | NUR ---
PT RESTING IN BED, EASILY AROUSED TO VERBAL STIMULI. LABS OBTAINED FROM PORT, PT TOLERATED WELL. PORT FLUSHED WELL. CALL LIGHT IN REACH,CONTINUE TO MONITOR.
[2017-08-18 06:18] LABS: URINE BILIRUBIN - DIPSTICK NEGATIVE (NEGATIVE); URINE BLOOD DIPSTICK MODERATE (NEGATIVE); URINE COLOR YELLOW; URINE GLUCOSE - DIPSTICK NEGATIVE (NEGATIVE); URINE KETONE NEGATIVE (NEGATIVE); URINE PROTEIN - DIPSTICK NEGATIVE (NEG-TRACE); URINE SPECIFIC GRAVITY 1.025; URINE UROBILINOGEN - DIPSTICK 0.2 E.U./dL (0.2)
[2017-08-18 06:38] LABS: URINE CLARITY SL CLOUDY; URINE LEUK ESTERASE MODERATE (NEGATIVE); URINE NITRITE - DIPSTICK POSITIVE (Negative)
[2017-08-18 06:39] LABS: URINE BACTERIA MANY hpf; URINE SQUAMOUS EPITHELIAL CELL RARE EPI/hpf (0-FEW)
--- NOTE | 2017-08-18 08:45 | NUR ---
PT ARRIVED TO THE UNIT FROM [place] VIA BED, PT DENIES ANY PAIN OR SOB AT THIS TIME, PT IS A & O X3, PERRL, HR 150s, RESP. 20, BP 149/79, O2 96% ON RA, LUNG SOUNDS CLEAR IN ALL ROMO, R CHEST WALL PORT PREVIOUSLY ACCESSED BY RN, BLE EDEMA, STRONG RADIAL PULSES, WEAK PEDAL PULSES, MONITORING EQUIPMENT & CALL BLACK EXPLAINED TO PT PRIOR TO APPLYING EQUIPMENT, PT VERBALIZED UNDERSTAND, SAFETY MEASURES INTRODUCED, CALL BLACK WITHIN REACH
--- NOTE | 2017-08-18 09:00 | NUR ---
PT CO PAIN TO LEFT BREAST, HEART RATE = 150-160 WITH IRREGULAR BEATS, EKG DONE, DR SON ON SITE, MAKENZIE FROM ED HERE AND EVALUATED PACEMAKE /DEFIB. 2 MG IV MORPHINE, 20MEQ K, AND 81MG ASA GIVEN. PT TRANSPORTED TO ICU PER MD'S ORDER TO CONTINUE CARE.
--- NOTE | 2017-08-18 09:15 | NUR ---
DR SON AT BEDSIDE DISCUSSING PLAN OF CARE
--- NOTE | 2017-08-18 09:28 | NUR ---
DR BURNS AT BEDSIDE DISCUSSING PLAN OF CARE
--- NOTE | 2017-08-18 10:05 | NUR ---
PT ASSISTED TO THE BSC AND BACK TO BED, PT AMBULATED WITH A SLOW STEADY GAIT, TOLERATED WELL CALL BLACK WITHIN REACH
--- NOTE | 2017-08-18 10:36 | NUR ---
VISITOR AT BEDSIDE
--- NOTE | 2017-08-18 11:45 | NUR ---
SETUP ASSISTANCE PROVIDED WITH LUNCH
[2017-08-18 11:52] LABS: ANION GAP 15 (6-22 (CALC)); BUN 20 mg/dL (8-23); BUN/CREATININE RATIO 21 (12-20 (CALC)); CARBON DIOXIDE 25 mmol/l (22-30); CHLORIDE 102 mmol/l (95-108); GFR 53 ML/MIN (>=60 (CALC)); GFR FOR AFR.AMER. > 60 ML/MIN (>=60 (CALC)); POTASSIUM 4.1 mmol/l (3.5-5.1); SODIUM 138 mmol/l (137-146)
--- NOTE | 2017-08-18 12:10 | NUR ---
PT ASSISTED TO THE BSC AND BACK TO BED, PT AMBULATED WITH A SLOW STEADY GAIT, TOLERATED WELL, CALL BLACK WITHIN REACH
--- NOTE | 2017-08-18 12:40 | NUR ---
Brian AT BEDSIDE FOR REPEAT EKG
--- NOTE | 2017-08-18 13:45 | NUR ---
PT LAYING IN BED RESTING WITH EYES CLOSED, AROUSES EASILY TO VERBAL STIMULI, REMINDED TO CALL FOR ASSISTANCE, CALL BLACK WITHIN REACH
--- NOTE | 2017-08-18 14:35 | NUR ---
PT WATCHING TV, VERBALIZES NO COMPLAINTS, CALL BLACK WITHIN REACH
--- NOTE | 2017-08-18 15:30 | NUR ---
PT ASSISTED TO THE BSC WITH MINIMAL STAND BY ASSISTANCE, PT AMBULATED WITH STRONG STEADY GAIT, CALL BLACK WITHIN REACH
--- NOTE | 2017-08-18 16:53 | NUR ---
PT SITTING UP IN BED WATCHING TV, VERBALIZES NO COMPLAINTS, NO S/S OF DISTRESS, CALL BLACK WITHIN REACH
--- NOTE | 2017-08-18 17:40 | NUR ---
SETUP ASSISTANCE PROVIDED WITH PM MEAL
--- NOTE | 2017-08-18 19:00 | NUR ---
awake. no acute distress. cardiac cath technologist shows sinus rhythm. #24 lt hand saline lock. amio infusing @ 16.7cchr. ns infusing @ 20cchr. po fluids taken fair. voids per bsc. fall precautions cont. friend @ bedside.
--- NOTE | 2017-08-18 19:50 | NUR ---
friend to desk. said pt was "in alot of pain." pt rated pain as "7". does not appear in any pain as she freely spoke to visitor. while giving med pt asked the name of the pain med. answered pt. pt admitted "i wish it was something stronger." pt reassured.
--- NOTE | 2017-08-18 20:50 | NUR ---
restoril 30mg po given per request for sleep.
--- NOTE | 2017-08-18 22:00 | NUR ---
eyes closed. no distress. monitor and storage bin tender shows paced rhythm.
[2017-08-19] VITALS (17 sets, daily range): BP systolic 97–134; BP diastolic 40–88
--- NOTE | 2017-08-19 00:01 | NUR ---
resting quietly. no apparent distress. radiographer cardiac catheterization shows paced rhythm.
--- NOTE | 2017-08-19 02:00 | NUR ---
eyes closed. no apparent distress.
--- NOTE | 2017-08-19 03:15 | NUR ---
up to bsc. voided well. weighed per digital scale then to bed. janette well.
--- NOTE | 2017-08-19 04:10 | NUR ---
blood drawn & sent to lab.
[2017-08-19 04:53] LABS: HEMATOCRIT 36.7 % (37.0-47.0); MEAN CELL VOLUME 93.4 fL CALC (80.0-100.0); MEAN CORPUSCULAR HGB 30.5 pG CALC (26.0-32.0); MEAN CORPUSCULAR HGB CONC 32.7 g/L CALC (32.0-36.0); RED BLOOD COUNT 3.93 mill/uL (4.20-5.60); RED CELL DISTRI WIDTH 14.6 % (11.5-15.5)
[2017-08-19 05:07] LABS: CREATININE 1.1 mg/dL (0.5-1.0); POTASSIUM 3.7 mmol/l (3.5-5.1)
--- NOTE | 2017-08-19 06:00 | NUR ---
up to bsc. janette well.
--- NOTE | 2017-08-19 07:05 | NUR ---
pt resting in bed with eyes closed; no distress noted; easily aroused; pt with complaints of lower back pain rating 7/10 immed upon awakening; no facial grimaces, s/s of pain noted; will medicate as per orders; no n/v; pt denies chest pain; resp even and unlabored; lungs clear; skin color wnl; ra; hr reg; sr with paced beats on monitor; strong pulses; edema noted to ble; abd soft with bs present; pt denies bm x2 days; admits to voiding without complication; no urine to inspect at this time; bsc; #24 flushed and patent to ; right chest port flushed and patent; blood return noted; ns infusing at kvo/ amiodarone gtt infusing at 0.5mg/min; no redness or edema noted at sites; plan of care/ am meds explained; call light within reach; will continue to monitor
--- NOTE | 2017-08-19 08:03 | NUR ---
awake; assist to bsc; voiding without pain or burning; urine noted slightly cloudy; paced/pvc on monitor; iv patent; amiodarone gtt cont at 0.5mg/min; pt offers no complaints; plan of care explained; call light within reach; will continue to monitor
--- NOTE | 2017-08-19 09:51 | NUR ---
received call from lora Hernandez; COVE[facility] will be here tomorrow am
--- NOTE | 2017-08-19 10:05 | NUR ---
awake in bed; offers no complaints; no distress noted; iv patent; paced/pvc on monitor; deny needs; call light within reach; will continue to monitor
--- NOTE | 2017-08-19 10:30 | NUR ---
home medication sent home with Tanner; patient aware; propafenone remains in med room
--- NOTE | 2017-08-19 14:23 | NUR ---
PT TO ULTRASOUND VIA WHEELCHAIR
--- NOTE | 2017-08-19 15:02 | NUR ---
pt returned to unit via wc in stable condition; all monitoring attachments explained and connected; pt offers no complaints; will continue to monitor
--- NOTE | 2017-08-19 15:48 | NUR ---
Saw pt for pharmacy rounds. Pt complains of gas, swollen legs, and no appetite. Pt was educated on blood pressure readings and the DASH diet. Meds were reviewed, pt had no questions or concerns about her medications.
--- NOTE | 2017-08-19 15:54 | NUR ---
awake in bed; offers no complaints; no distress noted; resp even and unlabored; iv intact; paced/pvc on monitor; call light within reach; will continue to monitor
--- NOTE | 2017-08-19 18:03 | NUR ---
awake; assist to bsc; no distress noted; pt offers no complaints; port remain accessed; paced/pvc on monitor; bed in lowest position; call light within reach
--- NOTE | 2017-08-19 20:37 | NUR ---
PT SITTING UP IN BED WITH FRIEND AT HER BED SIDE. A/O X3, RESPIRATIONS EVEN AND UNLABORED, O2 SAT 99%. C/O LEFT AND RIGHT RIB CAGE PAIN 8/10, PROVIDED WITH TRAMADOL AT THIS TIME. TELE READING PACED 64. B/P 134/57 . ENCOURAGED TO USE CALL LIGHT FOR ASSISTANCE, WILL CONTINUE TO MONITOR.
--- NOTE | 2017-08-19 22:00 | NUR ---
AZACTAM INFUSING TO RIGHT SUBCLAVIAN PORT WITH NO COPLICATIONS, VOICES NO CONCERNS.
[2017-08-20] VITALS (9 sets, daily range): BP systolic 95–136; BP diastolic 47–78
--- NOTE | 2017-08-20 01:37 | NUR ---
RESTING ON LEFT SIDE WITH EYES CLOSED, RESPIRATIONS EVEN AND UNLABORED.
--- NOTE | 2017-08-20 03:00 | NUR ---
OOB TO BSC, VOIDING CLEAR YELLOW URINE THEN BACK TO BED, HR 144 UP TO 170'S, ATTEMPTED TO LOWER HR BY ASKING PT TO BEAR DOWN IF HAVING A BM WITH NO SUCCESS, APPLIED ICE TO FACE WITH NO SUCCESS. DR. PETTY CALLED AND NOTIFIED, NEW ORDER RECEIVED FOR LOPRESSOR 5MG IV.
--- NOTE | 2017-08-20 03:35 | NUR ---
LOPRESSOR 5MG IV GIVEN BY NEO FREEMAN, HR SLOWLY DOWN TO 130'S. C/O LOWER BACK PAIN 02/25 MEDICATED WITH TRAMADOL. WILL CONTINUE TO MONITOR. CALL LIGHT IN REACH.
[2017-08-20 04:53] LABS: HEMATOCRIT 40.3 % (37.0-47.0); HEMOGLOBIN 13.3 g/dl (12.0-16.0); IMMATURE GRANULOCYTES 0.2 % (0.0-1.0); MEAN CELL VOLUME 93.1 fL CALC (80.0-100.0); MEAN CORPUSCULAR HGB 30.7 pG CALC (26.0-32.0); NEUT# 4.75 thou/uL (2.00-7.15); RED BLOOD COUNT 4.33 mill/uL (4.20-5.60); RED CELL DISTRI WIDTH 14.5 % (11.5-15.5)
[2017-08-20 05:08] LABS: ANION GAP 17 (6-22 (CALC)); BUN 31 mg/dL (8-23); BUN/CREATININE RATIO 30 (12-20 (CALC)); CARBON DIOXIDE 29 mmol/l (22-30); CHLORIDE 97 mmol/l (95-108); GFR 53 ML/MIN (>=60 (CALC)); GFR FOR AFR.AMER. > 60 ML/MIN (>=60 (CALC)); POTASSIUM 3.9 mmol/l (3.5-5.1); SODIUM 138 mmol/l (137-146)
--- NOTE | 2017-08-20 05:31 | NUR ---
DR. PETTY NOTIFIED OF PT'S CONTINUED AFIB 150'S. NEW ORDER RECEIVED FOR AMIODARONE 150MG BOLUS.
--- NOTE | 2017-08-20 06:00 | NUR ---
AMIODARONE BOLUS OF 150MG HELD DUE TO HR DOWN TO 65 AT THIS TIME, EKG OBTAINED READING SR WITH SINUS ARRHITHMIA.
--- NOTE | 2017-08-20 07:15 | NUR ---
pt awake in bed; no distress noted; pt offers no complaints at this time; assessment completed; pt alert and oriented; offers no complaints of pain; no n/v noted; resp even and unlabored; lungs clear; skin color wnl; ra; hr irreg; murmur noted; paced/pvc on monitor; strong pulses; edema noted to ble; abd soft with bs present; no bm noted per story writer; pt admits to voiding without pain or burning; no urine to inspect at this time; bsc; right chest port accessed; heparin locked; no redness or edema noted at site; plan of care/ am meds explained; call light within reach; will continue to monitor
--- NOTE | 2017-08-20 07:20 | NUR ---
pt assist to bsc; complaints of pain with activity; paced 90s on monitor with activity; weight obtained; call light within reach; will continue to monitor
--- NOTE | 2017-08-20 08:01 | NUR ---
awake in bed; offers complaints of left rib cage and lower back pain; no s/sx of pain noted; medicated with toradol as per orders; port flushed and patent; blood return noted; heparin instilled as per protocol; paced/pvc on monitor; pt denies additional needs; call light within reach; will continue to monitor
--- NOTE | 2017-08-20 08:55 | NUR ---
Dr Mendoza at bedside to discuss plan of care
--- NOTE | 2017-08-20 10:07 | NUR ---
awake in bed; offers no complaints; no distress noted; iv flushed and patent; abt infusing without complication; paced/pac underline sa on monitor; call light within reach; will continue to monitor
--- NOTE | 2017-08-20 11:13 | NUR ---
pt transported to ECHO room via wc accompanied by this public relations writer in stable condition;
--- NOTE | 2017-08-20 11:57 | NUR ---
pt transported back to ICU via wc in stable condition accompanied by this time; monitoring attachments explained and connected;
--- NOTE | 2017-08-20 12:17 | NUR ---
up to chair; staff assist with bath; no distress noted; pt offers complaints of bilat rib cage pain; will medicate; iv intact; call light within reach; will continue to monitor
--- NOTE | 2017-08-20 14:09 | NUR ---
resting with eyes closed; no distress noted; easily aroused; admits to pain relief; port accessed; sr occ paced on monitor; call light within reach; will continue to monitor
--- NOTE | 2017-08-20 16:08 | NUR ---
awake in bed; requesting "something with sugar"; food choices reviewed and jello provided; resp even and unlabored; port accessed; sr/ paced/ pvc on monitor; pt offers no complaints of pain; call light within reach; will continue to monitor
[2017-08-20] MEDS ORDERED: CORDARONE/200 MG/TAB PO (16:26)
--- NOTE | 2017-08-20 16:30 | NUR ---
Dr Mendoza at bedside
--- NOTE | 2017-08-20 16:53 | NUR ---
Patient is improving. Pt denied side effects. Patient feels sleepy - explained because of Tramadol and Trazodone given earlier today. c
--- NOTE | 2017-08-20 16:55 | NUR ---
discharge instructions reviewed with pt and friend Corrie; pt states understanding; propafenone retuned to pt to discard; port previously flushed and heparinized; port deaccessed as per protocol
--- NOTE | 2017-08-20 17:04 | NUR ---
Discharge instructions given. Patient verbalizes understanding of same. Discharged in stable condition via Wheelchair to Home with friend. All belongings sent with pt.
[2017-08-20] MEDS ORDERED: BACTRIM DS1 TAB PO (17:29)
== END 2017-08-20 17:04 | disposition home health service (06) | DRG 309 ==
LOC: ED 19:12 → ED-I 20:20 → ED 20:58 → MS2 20:59 → ICU 08-18 09:01
PROVIDERS: Emergency Medicine; Internal Medicine; Nurse Practitioner Family; ADMIT Internal Medicine; ATTEND Internal Medicine
PROC: 3E0234Z Introduction of Serum, Toxoid and Vaccine into Muscle, Percutaneous Approach (ICD-10-PCS; principal; 2017-08-19)
DX: I48.0 Paroxysmal atrial fibrillation (principal); I50.32 Chronic diastolic (congestive) heart failure; I11.0 Hypertensive heart disease with heart failure; E66.01 Morbid (severe) obesity due to excess calories; N39.0 Urinary tract infection, site not specified; E03.9 Hypothyroidism, unspecified; I25.10 Atherosclerotic heart disease of native coronary artery without angina pectoris; E78.5 Hyperlipidemia, unspecified; E83.42 Hypomagnesemia; K21.9 Gastro-esophageal reflux disease without esophagitis; F41.9 Anxiety disorder, unspecified; F32.9 Major depressive disorder, single episode, unspecified; G89.4 Chronic pain syndrome; G47.30 Sleep apnea, unspecified; B96.20 Unspecified Escherichia coli [E. coli] as the cause of diseases classified elsewhere; Z91.14 Patient's other noncompliance with medication regimen; Z95.0 Presence of cardiac pacemaker; Z23 Encounter for immunization; Z79.899 Other long term (current) drug therapy; Z88.9 Allergy status to unspecified drugs, medicaments and biological substances
CPT/HCPCS: G0378; J0282

== ENCOUNTER 2017-08-27 10:00 | Emergency (ER) | payer MEDICARE, OTHER ==
[~2017-08-27] VITALS: Ht 180.3 cm; Wt 118.1 kg
[~2017-08-27 10:00] MED LIST changes: +CORDARONE/200 MG/TAB PO
[2017-08-27] MEDS ORDERED: PANTOPRAZOLE SO40 MG PO (10:59)
[2017-08-27] MEDS ORDERED: MEDDOSEPAK PO (11:19)
[2017-08-27] MEDS ORDERED: TORADOL PO (11:19)
[2017-08-27 11:37] VITALS: BP 128/58
== END 2017-08-27 12:15 | disposition home or self-care (01) ==
LOC: ED 10:00
DX: M25.512 Pain in left shoulder (principal); R07.89 Other chest pain; R50.9 Fever, unspecified; I10 Essential (primary) hypertension; E78.5 Hyperlipidemia, unspecified; E03.9 Hypothyroidism, unspecified; K21.9 Gastro-esophageal reflux disease without esophagitis

== ENCOUNTER 2017-09-20 07:32 | Observation (INO) | payer MEDICARE, OTHER ==
[~2017-09-20] VITALS: Ht 180.3 cm; Wt 119.4 kg
[~2017-09-20 07:32] MED LIST changes: +MEDDOSEPAK PO; +PANTOPRAZOLE SO40 MG PO; +TORADOL PO
--- NOTE | 2017-09-20 07:32 | NUR ---
TO ROOM 9 VIA STRETCHER
--- NOTE | 2017-09-20 08:09 | NUR ---
PT MEDICATED WITH MORPHINE FOR 8/10 PAIN TO THE LEFT ANTERIOR CHEST. PER PT PAIN RAIATED DOWN LEFT ARM. 1 NITRO WAS TAKEN AT HOME WITH NO RELIEF. RIGHT SIDE PORT ACCESSED WITH NOTED BLOOD RETURN. LABS COLLECTED AND PT AWARE OF PLAN OF CARE AND WAIT TIME. CALL BLACK WITHIN REACH.
[2017-09-20 08:17] LABS: HEMATOCRIT 38.9 % (37.0-47.0); HEMOGLOBIN 12.5 g/dl (12.0-16.0); IMMATURE GRANULOCYTES 0.4 % (0.0-1.0); MEAN CELL VOLUME 95.1 fL CALC (80.0-100.0); MEAN CORPUSCULAR HGB 30.6 pG CALC (26.0-32.0); MEAN CORPUSCULAR HGB CONC 32.1 g/L CALC (32.0-36.0); NEUT# 3.89 thou/uL (2.00-7.15); RED BLOOD COUNT 4.09 mill/uL (4.20-5.60); RED CELL DISTRI WIDTH 14.5 % (11.5-15.5)
[2017-09-20 08:37] LABS: ANION GAP 16 (6-22 (CALC)); BUN 24 mg/dL (8-23); BUN/CREATININE RATIO 25 (12-20 (CALC)); CARBON DIOXIDE 26 mmol/l (22-30); CHLORIDE 103 mmol/l (95-108); GFR 53 ML/MIN (>=60 (CALC)); GFR FOR AFR.AMER. > 60 ML/MIN (>=60 (CALC)); POTASSIUM 4.2 mmol/l (3.5-5.1); SODIUM 141 mmol/l (137-146)
--- NOTE | 2017-09-20 08:45 | NUR ---
PER PT SHE TOOK 162 MG OF ASPIRIN WHEN PAIN STARTED.
--- NOTE | 2017-09-20 09:04 | NUR ---
SBAR PRINTED TO FLOOR
--- NOTE | 2017-09-20 09:24 | NUR ---
REPORT CALLED TO RHEA SIU.
--- NOTE | 2017-09-20 10:09 | NUR ---
Admission Note Report Given to: SBAR PRINTED TO FLOOR Transported by: Wheelchair X Stretcher Transported with: X Nurse Transporter X Patent IV O2 X Application Technical Designer
--- NOTE | 2017-09-20 10:10 | NUR ---
PT ARRIVED TO THE UNIT VIA STRETCHER ACCOMPANIED BY STAFF. IV SITE IS FREE FROM REDNESS OR EDEMA. TELE MONTIOR IN PLACE.
[2017-09-20 10:25] VITALS: BP 145/60
--- NOTE | 2017-09-20 10:40 | NUR ---
ASSESSMETN IS COMPLETED: INQUIRED ABOUT PAIN MEDICATION, EXPLAINED THAT HAD TO WAIT FOR THE DR TO COME IN, CONTINUE TO OBSERVE AND MONITOR.
--- NOTE | 2017-09-20 12:00 | NUR ---
PT WAITING FOR LUNCH,. NO DISTRESS NTOED. IV SITE IS FREE FROM REDNESS OR EDMEA. TELE MONTOR IN PLACE.
[2017-09-20 13:02] LABS: CHOLESTEROL HDL RATIO 4.2 (<4.4 (CALC))
--- NOTE | 2017-09-20 14:00 | NUR ---
PT HAS BEEN RELAXING IN BED WITH MINIMAL AMOUNT OF C/O PAIN. IV SITE IS FREE FROM REDNESS OR EDEMA ABLE TO FLUSH WITH NS AND HEPARIN. CONTINUE TO OSBERVE AND MONITOR.
--- NOTE | 2017-09-20 14:59 | NUR ---
Saw pt for med education rounds. Pt complained of left sided chest pain radiating down her arm. However, she was already given nitroglycerin patch for this same symptom recently. Pt had no questions or concerns about her medications.
[2017-09-20 15:35] VITALS: BP 147/58
--- NOTE | 2017-09-20 18:00 | NUR ---
IN TO VISIT WITH PT PLACED NEW ORDERS IN FOR PT. IV SITE IS FREE FROM REDNESS OR EDEMA. CONTINUE TO OBSERVE AND MONITOR.
[2017-09-20 19:00] VITALS: BP 106/62
--- NOTE | 2017-09-20 19:15 | NUR ---
REPORT RECEIVED Stacy CABRERA. ORIENTING UNDER LYDIA MARTIN. PT LAYING IN BED, DENIES NEEDS AT THIS TIME. BED IN LOW POSITION, CALL LIGHT IN REACH.
--- NOTE | 2017-09-20 20:42 | NUR ---
PT MEDICATED FOR PAIN PER MAR. RATES 7/10 ON LEFT SIDE OF BODY.
--- NOTE | 2017-09-20 22:31 | NUR ---
TROPONIN DUE AT 2200, LYDIA MARTIN FLUSHED PORT AND ATTEMPTED BLOOD DRAW FROM PORT. UNSUCCESSFUL IN BLOOD RETURN. PT STATES SHE WILL NOT ALLOW LAB STICK, "THAT IS WHAT PORT IF FOR" PORT FLUSHED WITH HEPARIN PER MAR. WAIT X 20 MINUTES. LYDIA MARTIN WAS SUCCESSFUL IN BLOOD RETURN AND TROPONIN SUCCESSFULLY DRAWN.
[2017-09-21 00:48] VITALS: BP 102/57
[2017-09-21 04:04] VITALS: BP 97/57
--- NOTE | 2017-09-21 05:49 | NUR ---
MEDICATED PER REQUEST FOR LEFT SHOULDER PAIN AND HEAD. RATES 7/10.
--- NOTE | 2017-09-21 06:00 | NUR ---
Sher PARIS RN ATTEMPTED TO DRAW PT LABS VIA PORT WITHOUT A BLOOD RETURN. PORT FLUSHED WITH HEPARIN FLUSH, THEN LABS SUCCESSFULLY DRAWN.
[2017-09-21 06:37] LABS: HEMATOCRIT 35.9 % (37.0-47.0); HEMOGLOBIN 11.4 g/dl (12.0-16.0); IMMATURE GRANULOCYTES 0.3 % (0.0-1.0); MEAN CELL VOLUME 96.5 fL CALC (80.0-100.0); MEAN CORPUSCULAR HGB 30.6 pG CALC (26.0-32.0); MEAN CORPUSCULAR HGB CONC 31.8 g/L CALC (32.0-36.0); NEUT# 3.31 thou/uL (2.00-7.15); RED BLOOD COUNT 3.72 mill/uL (4.20-5.60); RED CELL DISTRI WIDTH 14.7 % (11.5-15.5)
[2017-09-21 07:01] LABS: BILIRUBIN, TOTAL 0.2 mg/dL (0.0-1.4); CREATININE 1.1 mg/dL (0.5-1.0); POTASSIUM 4.7 mmol/l (3.5-5.1)
[2017-09-21 07:03] LABS: ALBUMIN 3.3 g/dL (3.2-5.0); TOTAL PROTEIN 5.9 g/dL (6.3-8.2)
[2017-09-21 08:00] VITALS: BP 131/70
--- NOTE | 2017-09-21 08:00 | NUR ---
ASSESSMENT IS COMPLETED: IV SITE IS FREE FROM REDNESS OR EDEMA. BREATH SOUNDS ARE CLEAR, BILATERALLY, NO C/O SOB, HR IS REG,PULSES ARE STRONG X4, ABD IS SOFT WITH ACTIVE BS. TELE MONITOR IN PLACE. CONTINUE TO OSBERVE AND MONITOR.
[2017-09-21 11:00] VITALS: BP 116/50
--- NOTE | 2017-09-21 12:00 | NUR ---
PT IS RELAXING IN BED WITH NO DISTRESS NOTED. IV SITE IS FREE FROM REDNESS OR EDEMA. CONTINUE TO OBSERVE AND MONITOR.
--- NOTE | 2017-09-21 12:50 | NUR ---
SPOKE WITH AYDIN FREEMAN AT [facility]. GIVING INFORMATION RE: PT AND [facility] TO TRANSFER PT. IV SITE INTACT. NO DISTRESS NOTED. CONTINUE TO OBSERVE AND MONITOR.
== END 2017-09-21 12:48 ==
LOC: ED 07:32 → ED-I 08:50 → ED 09:04 → MS2 09:05
PROVIDERS: Family Medicine; ADMIT Internal Medicine Geriatric Medicine; ATTEND Internal Medicine Geriatric Medicine
DX: I25.119 Atherosclerotic heart disease of native coronary artery with unspecified angina pectoris (principal); R94.39 Abnormal result of other cardiovascular function study; I12.9 Hypertensive chronic kidney disease with stage 1 through stage 4 chronic kidney disease, or unspecified chronic kidney disease; E11.22 Type 2 diabetes mellitus with diabetic chronic kidney disease; N18.9 Chronic kidney disease, unspecified; I48.91 Unspecified atrial fibrillation; K21.9 Gastro-esophageal reflux disease without esophagitis; K27.9 Peptic ulcer, site unspecified, unspecified as acute or chronic, without hemorrhage or perforation; F32.9 Major depressive disorder, single episode, unspecified; E03.9 Hypothyroidism, unspecified; E78.5 Hyperlipidemia, unspecified; K22.0 Achalasia of cardia; R13.10 Dysphagia, unspecified; M19.012 Primary osteoarthritis, left shoulder; Z95.0 Presence of cardiac pacemaker; Z91.14 Patient's other noncompliance with medication regimen

== ENCOUNTER 2017-11-08 10:08 | Emergency (ER) | payer MEDICARE, OTHER ==
[~2017-11-08] VITALS: Ht 180.3 cm; Wt 118.0 kg
[2017-11-08] MEDS ORDERED: NAPROXEN DR500 MG PO (10:33)
[2017-11-08] MEDS ORDERED: TRAMADOL HYDROC50 MG PO (10:33)
[2017-11-08] MEDS ORDERED: FLEXERIL PO (10:33)
[2017-11-08 10:50] VITALS: BP 158/85
== END 2017-11-08 10:50 | disposition home or self-care (01) ==
LOC: ED 10:08
DX: M54.12 Radiculopathy, cervical region (principal); R20.0 Anesthesia of skin; M25.512 Pain in left shoulder

== ENCOUNTER 2017-12-14 16:32 | Emergency (ER) | payer MEDICARE, OTHER ==
[~2017-12-14] VITALS: Ht 180.3 cm; Wt 118.2 kg
[~2017-12-14 16:32] MED LIST changes: +NAPROXEN DR500 MG PO; +TRAMADOL HYDROC50 MG PO
[2017-12-14] MEDS ORDERED: NITROSTAT0.4 MG SL (17:50)
[2017-12-14] MEDS ORDERED: FLEXERIL5 M1 PO (18:20)
[2017-12-14] MEDS ORDERED: PROPAFENONE150 M1 PO (18:22)
[2017-12-14 18:34] LABS: HEMOGLOBIN 13.1 g/dl (12.0-16.0); IMMATURE GRANULOCYTES 0.4 % (0.0-1.0); MEAN CELL VOLUME 95.8 fL CALC (80.0-100.0); MEAN CORPUSCULAR HGB 30.6 pG CALC (26.0-32.0); NEUT# 7.62 thou/uL (2.00-7.15); RED BLOOD COUNT 4.28 mill/uL (4.20-5.60); RED CELL DISTRI WIDTH 14.5 % (11.5-15.5)
[2017-12-14 18:39] LABS: ALBUMIN 3.8 g/dL (3.2-5.0); ALKALINE PHOSPHATASE 79 u/l (38-126); ANION GAP 17 (6-22 (CALC)); BILIRUBIN, TOTAL 0.5 mg/dL (0.0-1.4); BUN 20 mg/dL (8-23); BUN/CREATININE RATIO 22 (12-20 (CALC)); CARBON DIOXIDE 29 mmol/l (22-30); CHLORIDE 102 mmol/l (95-108); CREATININE 0.9 mg/dL (0.5-1.0); GFR 60 ML/MIN (>=60 (CALC)); GFR FOR AFR.AMER. > 60 ML/MIN (>=60 (CALC)); LIPASE 16 u/l (23-300); POTASSIUM 4.4 mmol/l (3.5-5.1); SGOT/AST 46 u/l (9-36); SGPT/ALT 59 u/l (11-66); SODIUM 143 mmol/l (137-146)
[2017-12-14 18:42] LABS: TOTAL PROTEIN 7.1 g/dL (6.3-8.2)
[2017-12-14] MEDS ORDERED: PROTONIX40 MG PO (18:52)
[2017-12-14] MEDS ORDERED: PHENERGAN25 MG/TAB PO (18:52)
[2017-12-14 19:14] VITALS: BP 151/96
== END 2017-12-14 19:31 | disposition home or self-care (01) ==
LOC: ED 16:32
PROVIDERS: Emergency Medicine
DX: K52.9 Noninfective gastroenteritis and colitis, unspecified (principal); I11.0 Hypertensive heart disease with heart failure; I50.9 Heart failure, unspecified; I25.10 Atherosclerotic heart disease of native coronary artery without angina pectoris; E78.5 Hyperlipidemia, unspecified; K21.9 Gastro-esophageal reflux disease without esophagitis; E03.9 Hypothyroidism, unspecified; Z87.11 Personal history of peptic ulcer disease; Z95.0 Presence of cardiac pacemaker

== ENCOUNTER 2018-03-11 15:24 | Observation (INO) | payer MEDICARE, OTHER ==
[~2018-03-11] VITALS: Ht 180.3 cm; Wt 120.0 kg
[~2018-03-11 15:24] MED LIST changes: +ADVIL200 MG PO; +BIOTIN MAXI10000 MC1 PO; +DIPHENHYDRAM25 MG PO; +PHENERGAN25 MG/TAB PO
[2018-03-11 16:28] LABS: HEMOGLOBIN 11.4 g/dl (12.0-16.0); IMMATURE GRANULOCYTES 0.4 % (0.0-5.0); MEAN CELL VOLUME 95.4 fL CALC (80.0-100.0); MEAN CORPUSCULAR HGB 31.1 pG CALC (26.0-32.0); MEAN CORPUSCULAR HGB CONC 32.6 g/L CALC (32.0-36.0); NEUT# 4.75 thou/uL (2.00-7.15); RED BLOOD COUNT 3.67 mill/uL (4.20-5.60); RED CELL DISTRI WIDTH 14.9 % (11.5-15.5)
[2018-03-11 16:34] LABS: ANION GAP 15 (6-22 (CALC)); BUN 20 mg/dL (8-23); BUN/CREATININE RATIO 21 (12-20 (CALC)); CARBON DIOXIDE 27 mmol/l (22-30); CHLORIDE 105 mmol/l (95-108); CREATININE 0.9 mg/dL (0.5-1.0); GFR 60 ML/MIN (>=60 (CALC)); GFR FOR AFR.AMER. > 60 ML/MIN (>=60 (CALC)); POTASSIUM 4.5 mmol/l (3.5-5.1); SODIUM 143 mmol/l (137-146)
[2018-03-11] MEDS ORDERED: ALLERGY RELIEF25 MG PO (16:57)
[2018-03-11] MEDS ORDERED: ALEVE220 M2 PO (16:59)
[2018-03-11] MEDS ORDERED: PANTOPRAZOLE SO40 MG PO (16:59)
[2018-03-11 18:00] VITALS: BP 129/43
[2018-03-11 19:25] VITALS: BP 116/62
[2018-03-12 05:27] VITALS: BP 104/59
[2018-03-12 08:27] VITALS: BP 138/61
[2018-03-12 11:16] VITALS: BP 130/69
[2018-03-12 14:47] LABS: HEMATOCRIT 35.8 % (37.0-47.0); HEMOGLOBIN 11.4 g/dl (12.0-16.0); IMMATURE GRANULOCYTES 0.5 % (0.0-5.0); MEAN CELL VOLUME 96.8 fL CALC (80.0-100.0); MEAN CORPUSCULAR HGB 30.8 pG CALC (26.0-32.0); MEAN CORPUSCULAR HGB CONC 31.8 g/L CALC (32.0-36.0); NEUT# 5.2 thou/uL (2.00-7.15); RED BLOOD COUNT 3.7 mill/uL (4.20-5.60)
[2018-03-12 15:31] LABS: ANION GAP 16 (6-22 (CALC)); BUN 15 mg/dL (8-23); BUN/CREATININE RATIO 18 (12-20 (CALC)); CARBON DIOXIDE 24 mmol/l (22-30); CHLORIDE 108 mmol/l (95-108); CREATININE 0.8 mg/dL (0.5-1.0); GFR > 60 ML/MIN (>=60 (CALC)); GFR FOR AFR.AMER. > 60 ML/MIN (>=60 (CALC)); POTASSIUM 4.7 mmol/l (3.5-5.1); SODIUM 142 mmol/l (137-146)
[2018-03-12 15:52] VITALS: BP 117/59
[2018-03-12 20:02] VITALS: BP 148/71
[2018-03-13 00:40] VITALS: BP 138/68
[2018-03-13 03:21] VITALS: BP 127/79
[2018-03-13 08:00] VITALS: BP 165/65
[2018-03-13 11:26] VITALS: BP 123/54
== END 2018-03-13 15:17 | disposition home or self-care (01) ==
LOC: ED 15:24 → ED-I 16:48 → ED 17:22 → MS2 17:23
PROVIDERS: Family Medicine; ADMIT General Practice; ATTEND General Practice
DX: R07.9 Chest pain, unspecified (principal); G89.29 Other chronic pain; I11.0 Hypertensive heart disease with heart failure; I50.9 Heart failure, unspecified; E78.5 Hyperlipidemia, unspecified; I25.10 Atherosclerotic heart disease of native coronary artery without angina pectoris; E03.9 Hypothyroidism, unspecified; K21.9 Gastro-esophageal reflux disease without esophagitis; I48.91 Unspecified atrial fibrillation; M19.012 Primary osteoarthritis, left shoulder; N93.9 Abnormal uterine and vaginal bleeding, unspecified; Z95.0 Presence of cardiac pacemaker
CPT/HCPCS: J1650

== ENCOUNTER → 2018-04-26 | Outpatient (REF) | payer MEDICARE, OTHER ==
[~2018-04-26] MED LIST changes: +ALEVE220 M2 PO; +ALLERGY RELIEF25 MG PO
== END | disposition home or self-care (01) ==
LOC: INF 10:33
PROVIDERS: ATTEND Internal Medicine Geriatric Medicine
PROC: 3C1ZX8Z Irrigation of Indwelling Device using Irrigating Substance, External Approach (ICD-10-PCS; principal; 2018-04-26)
DX: Z45.2 Encounter for adjustment and management of vascular access device (principal)

== ENCOUNTER 2018-06-21 10:55 | Inpatient (IN) | payer MEDICARE, OTHER ==
[~2018-06-21] VITALS: Ht 180.3 cm; Wt 106.6 kg
--- NOTE | 2018-06-21 10:55 | NUR ---
PT TO ROOM VIA EMS STRETCHER.
--- NOTE | 2018-06-21 11:30 | NUR ---
PT MEDICATED ORDERED, IVF AND IV ABX INITIATED. 1 NTG ADMINISTERED. WILL CONTINUED TO MONITOR CLOSELY.
[2018-06-21 11:31] LABS: IMMATURE GRANULOCYTES 0.6 % (0.0-5.0); MEAN CELL VOLUME 99.3 fL CALC (80.0-100.0); MEAN CORPUSCULAR HGB 31.5 pG CALC (26.0-32.0); MEAN CORPUSCULAR HGB CONC 31.7 g/L CALC (32.0-36.0); NEUT# 10.42 thou/uL (2.00-7.15); RED BLOOD COUNT 2.95 mill/uL (4.20-5.60); RED CELL DISTRI WIDTH 17.6 % (11.5-15.5)
[2018-06-21 11:33] LABS: HEMATOCRIT 29.3 % (37.0-47.0); HEMOGLOBIN 9.3 g/dl (12.0-16.0)
--- NOTE | 2018-06-21 11:42 | NUR ---
CHEST PAIN UNRELIEVED BY 1ST NTG, 2NTG TAB SL ADMINISTERED. WILL CONTINUE TO MONITOR CLOSELY.
[2018-06-21 11:43] LABS: ALKALINE PHOSPHATASE 82 u/l (38-126); ANION GAP 11 (6-22 (CALC)); BILIRUBIN, TOTAL 0.6 mg/dL (0.0-1.4); BUN 10 mg/dL (8-23); BUN/CREATININE RATIO 16 (12-20 (CALC)); CARBON DIOXIDE 25 mmol/l (22-30); CHLORIDE 104 mmol/l (95-108); CREATININE 0.6 mg/dL (0.5-1.0); GFR > 60 ML/MIN (>=60 (CALC)); GFR FOR AFR.AMER. > 60 ML/MIN (>=60 (CALC)); LIPASE 52 u/l (23-300); SGOT/AST 37 u/l (9-36); SODIUM 135 mmol/l (137-146); TOTAL PROTEIN 6.1 g/dL (6.3-8.2)
--- NOTE | 2018-06-21 12:30 | NUR ---
PT IN NO ACUTE DISTRESS.VSS. PT STATES PAIN TO CHEST INCREASES WITH COUGH. NOTAED FERNANDEZ EXUDATE TO MID ABD INCISION DRESSING.
--- NOTE | 2018-06-21 13:30 | NUR ---
DR WHITMAN AT BEDSIDE TO DISCUSS ADMIT. PT AGREEABLE.
--- NOTE | 2018-06-21 13:34 | NUR ---
Aws Software Development Engineer and Issa Kaba spoke with Dr. Villegas re: Patient being admitted as observational status with possibility of making inpatient at a later time related to developing lab/test results. At this time Patient meets observational criteria - MD in agreement - Dr. Cornelius is Patient's admitting/attending MD.
--- NOTE | 2018-06-21 13:40 | NUR ---
INFORMED OF PTS C/O COUGH. NON PRODUCTIVE
[2018-06-21] MEDS ORDERED: CARVEDILOL6.25 MG PO (13:47)
[2018-06-21] MEDS ORDERED: MUPIROCIN2 % TOP (13:49)
[2018-06-21] MEDS ORDERED: ENOXAPARIN40 MG/0.1 SC (13:49)
[2018-06-21] MEDS ORDERED: MUPIROCIN2 % EX (13:50)
[2018-06-21] MEDS ORDERED: LIPITOR10 M1 PO (13:52)
[2018-06-21] MEDS ORDERED: LASIX 20 MG TAB20 MG PO (13:54)
[2018-06-21] MEDS ORDERED: MV-ONE PO (14:01)
[2018-06-21] MEDS ORDERED: ZOLOFT25 MG PO (14:02)
[2018-06-21] MEDS ORDERED: TYLENOL325 M2 PO (14:03)
--- NOTE | 2018-06-21 14:20 | NUR ---
ABD INCISION WITH COPIOUS AMOUNTS OF FERNANDEZ EXUDATE TO MIDDLE OF ABD INCISION. CLEANSED AND REDRESSED WITH DRY DRESSING. STAPLE LINE MID ABD STRAIGHT AND INTACT, NO EVISCERATION NOTED.
--- NOTE | 2018-06-21 14:30 | NUR ---
PT TOLERATING COUGH MED WELL. NO FURTHER COUGH NOTED. RESTING WIHT EYES CLOSED
[2018-06-21 16:42] LABS: C. DIFFICILE TOXIN A&B NEGATIVE (NEGATIVE)
--- NOTE | 2018-06-21 16:59 | NUR ---
CALLED REPORT TO [facility] ON [place], PT TRANSPORTED TO [place] VIA STRETCHER ON TELE
--- NOTE | 2018-06-21 17:15 | NUR ---
Pt to M/S via stretcher. All belongings sent with pt/
--- NOTE | 2018-06-21 17:15 | NUR ---
PT ADMIOTTED TO MED SURG ROOM 269 VIA STRETCHER, PT STOOD AND TRANSFERRED TO BED WITH STAND BY ASSIST, PT ALERT AND ORIENTED, HAD A RECENT TOTAL ABD HYSTERECTOMY WITH VANDANA STILL INTACT PT HAS DRESSING IN PLACE WITH FERNANDEZ PURULENT DRNG NOTED, SKIN OTHERWISE INTACT, SOME DENUDED SKIN NOTED TO [facility] PT STATES SHE HAS "BEEN WEARING A BRIEF AT THE PRISON" PT HAS ACCESSED PORT IN R CHEST WALL WITH GOOD ASPIRATE NOTED, FLUSHED AND IVF WILL BE STARTED ORDERED, VS STABLE, PT AFEBRILE AT THIS TIME, EDEMA NOTED TO BILATERAL LE PPPB, NO COMPLAINTS OF PAIN AT THIS TIME, SAFETY MEASURES INTRODUCED, CALL BLACK WITHIN REACH, EDUCATED RETGARDING PLANOF CARE INCLUDING IVF, ABT, CLEAR LIQUID DIET, VS FREQUENCY ETC. WILL CONTINUE TO MONITOR.
--- NOTE | 2018-06-21 17:40 | NUR ---
CALLED BY FOR CONSULT.
[2018-06-21 18:18] VITALS: BP 114/41
--- NOTE | 2018-06-21 18:24 | NUR ---
PT REMINDED OF CLEAR LIQUID DIET IVF INFUSING INTO IM[PLANTED PORT WITHOUT INCIDENT, CALL BLACK WITHIN REACH.
--- NOTE | 2018-06-21 19:00 | NUR ---
RECEIVED REPORT FROMDAY SHIFT NURSE. PT RESTING QUIETLY IN BED. NO S/S OF DISTRESS NOTED. CALL BLACK IN REACH. WILL CONTINUE TO MONITOR.
[2018-06-21 19:30] VITALS: BP 113/90
--- NOTE | 2018-06-21 21:30 | NUR ---
PT RESTING QUIETLY IN BED. MANAGER FINANCE IN ROOM FOR QUITE SOMETIME NO COUGH NOTED, THEN PT SAYS SHE SHE HAS A COUGH AND STARTS COUGHING. MANAGER FINANCE LET PT KNOW SHE HAD NOTHING FOR COUGH. ASSESMENT COMPLETED AT THIS TIME(SEE INTERVENTIONS) LUNG SOUNDS WHEEZY, HEART SOUNDS IRREGULAR, BOWEL SOUNDS ACTIVE. ABD TENDERNESS. DRESSING TO ABD HAS FERNANDEZ DRAINAGE NOTED. PT HAS RIGHT SIDED PORT INFUSING WELL, NO REDNESS OR EDEMA NOTED. ALL NEEDS MET AT THIS TIME MANAGER FINANCE WAS LEAVING THE ROOM PT STATES "I GUESS IM FINE SINCE I CANT GET ANYTHING FOR MY THROAT". CALL BLACK IN REACH. WILL CONTINUE TO MONITOR.
[2018-06-22] VITALS (11 sets, daily range): BP systolic 118–168; BP diastolic 37–88
--- NOTE | 2018-06-22 02:54 | NUR ---
REMOVED DRESSING ON ABD , VANDANA WELL APPROXIMATED. SOME SERO/PURUKENT DRAINAGE NOTED ON PAD. USING CLEAN TECHNIQUE. PT TOLERATED WELL. C/O SOME TENDERNESS ON R SIDE OF THE ABD, WHEN APPLYING THE TAPE. CONTINUE TO OSBERVE AND MONITOR.
--- NOTE | 2018-06-22 04:54 | NUR ---
C/O SOB, GAVE O2 @ 2LITERS WITH NC AND HUMIDIFIED WATER.
--- NOTE | 2018-06-22 05:42 | NUR ---
LABS DRAWN VIA PORT. FLUSHED WELL
[2018-06-22 05:58] LABS: HEMATOCRIT 25.9 % (37.0-47.0); HEMOGLOBIN 8.2 g/dl (12.0-16.0); IMMATURE GRANULOCYTES 0.5 % (0.0-5.0); MEAN CELL VOLUME 98.5 fL CALC (80.0-100.0); MEAN CORPUSCULAR HGB 31.2 pG CALC (26.0-32.0); MEAN CORPUSCULAR HGB CONC 31.7 g/L CALC (32.0-36.0); NEUT# 5.78 thou/uL (2.00-7.15); RED BLOOD COUNT 2.63 mill/uL (4.20-5.60); RED CELL DISTRI WIDTH 17.5 % (11.5-15.5)
[2018-06-22 06:12] LABS: ALBUMIN 2.5 g/dL (3.2-5.0); ALKALINE PHOSPHATASE 71 u/l (38-126); ANION GAP 9 (6-22 (CALC)); BILIRUBIN, TOTAL 0.3 mg/dL (0.0-1.4); BUN 9 mg/dL (8-23); BUN/CREATININE RATIO 13 (12-20 (CALC)); CARBON DIOXIDE 25 mmol/l (22-30); CHLORIDE 106 mmol/l (95-108); CREATININE 0.7 mg/dL (0.5-1.0); GFR > 60 ML/MIN (>=60 (CALC)); GFR FOR AFR.AMER. > 60 ML/MIN (>=60 (CALC)); MAGNESIUM 1.8 mg/dL (1.6-2.3); POTASSIUM 3.4 mmol/l (3.5-5.1); SGOT/AST 26 u/l (9-36); SODIUM 137 mmol/l (137-146); TOTAL PROTEIN 5.4 g/dL (6.3-8.2)
--- NOTE | 2018-06-22 06:30 | NUR ---
EKG WAS COMPLETED; PT C/O CHEST PRESSURE AND STARTED COUGHING. O2 IN PLACE,.
--- NOTE | 2018-06-22 07:15 | NUR ---
BEDSIDE REPORT RECEIVED BY APARNA. PT IS RESTING IN WITH NO S/S OF DISTRESS NOTED. PT DENIES NEEDS AT THIS TIME. CALL LIGHT IN REACH.
--- NOTE | 2018-06-22 07:22 | NUR ---
PT UNABLE TO SLEEP. PT OFFERED SLEEPING PILL. PT DECLINED
--- NOTE | 2018-06-22 08:00 | NUR ---
PT IS SITTING IN RECLINER. ASSESSMENT DONE. TELE IN PLACE. PT HAS A DRY COUGH. 02 2L/MIN VIA NC. PT DENIES PAIN AT THIS TIME. D5NS 75ML/HR INFUSING WELL. ABD DRESSING IS CDI. SAFETY PRECAUTIONS REINFORCED AND CALL LIGHT IN REACH.
[2018-06-22 09:06] LABS: URINE BILIRUBIN - DIPSTICK NEGATIVE (NEGATIVE); URINE BLOOD DIPSTICK LARGE (NEGATIVE); URINE COLOR YELLOW; URINE GLUCOSE - DIPSTICK NEGATIVE (NEGATIVE); URINE KETONE NEGATIVE (NEGATIVE); URINE LEUK ESTERASE TRACE (NEGATIVE); URINE NITRITE - DIPSTICK NEGATIVE (Negative); URINE PROTEIN - DIPSTICK TRACE mg/dL (NEG-TRACE); URINE UROBILINOGEN - DIPSTICK 0.2 E.U./dL (0.2)
[2018-06-22 09:10] LABS: URINE CLARITY SL CLOUDY
[2018-06-22 09:13] LABS: URINE AMORPH SEDIMENT FEW hpf (NONE-FEW); URINE SQUAMOUS EPITHELIAL CELL MODERATE EPI/hpf (0-FEW)
--- NOTE | 2018-06-22 11:00 | NUR ---
DIFFICULT TO DRAW LABS SMALL AMOUNT OF BLOOD RETURN AND FLUSING WELL. SETHRN AT BEDSIDE TO REACCESSED PT RU PORT LABS OBTAIN AND FLUSHING WELL. CALL LIGHT IN REACH.
--- NOTE | 2018-06-22 13:00 | NUR ---
BLOOD TRANSFUSION STARTED. EXPLAIN TO PT REACTIONS FROM BLOOD. PT VERBALIZED UNDERSTANDING. TELE IN PLACE. RETURNED GOODS INSPECTOR IN ROOM WITH PT.
--- NOTE | 2018-06-22 14:00 | NUR ---
DR. VILLEDA AT BEDSIDE TO ASSESS. REMOVED 7 VANDANA FROM ABD. NEW DRESSING IN PLACE. PT TOLERATED WELL. CALL LIGHT IN REACH.
--- NOTE | 2018-06-22 15:35 | NUR ---
S: VIJAYA LEON is a 82 F who presents with sepsis. She has a history of Chicken Pox/Herpes, HTN, Hyperlipidemia, hypothroidism, GERD, CAD, CHF, HD, cardiac cath, luan, pacemaker, PUD . All medications in patient's chart were reviewed. O: VS: BP 150/74, P 63, RR 20 ,T 100.1 W 106.594 kg, HT 180.34 cm, Scr=0.7,CrCl= 60 ml/min A: Blood culture show no growth after 24 hours Wound culture show gram postive cocci P: Patient is on Aztreonam, Vancomycin Vancomycin ordered for pharmacy to dose. Start Vancomycin 1750 mg IV Q12H. Vancomycin trough is drawn before the 4th dose on 06/23/18 @ 0830. Vancomycin goal trough is between <15-20 mcg/ml. Pharmacy will follow and or advise on antibiotics use as needed.
--- NOTE | 2018-06-22 15:52 | NUR ---
SECOND UNIT OF BLOOD STARTED .PT HAS NO S/S OF DISTRESS NOTED. PT VISITING WITH FRIEND IN ROOM. PT DENIES NEEDS AT THIS TIME. CALL LIGHT IN REACH.
--- NOTE | 2018-06-22 16:40 | NUR ---
PT STATED PAIN IN ABD/CHEST PAIN. VS OBATAIN. EKG ORDER. PT STATED UNSURE IF ITS HER ANXIETY. O2 APPLIED AT 2L/MIN NC. FRIEND IN ROOM AND CALL LIGHT IN REACH.
--- NOTE | 2018-06-22 17:09 | NUR ---
CALLED DR. ADAMES RE: PT CHEST PAIN. EKG SR 68 AND BP168/88. ORDERES RECIEVED AT THIS TIME.
--- NOTE | 2018-06-22 20:07 | NUR ---
ASSESSMENT IS COMPLETED: PT IS RESTING WITH EYES CLOSED. IV SITE IS FREE FROM REDNESS OR EDEMA. HR IS REG, PULSES ARE STRONG X4, ABD IS SOFT WITH ACTIVE BS. BREATH SOUNDS ARE CLEAR WITH AUDIBLE WHEEZING WHILE SHE SLEEPS. TELE MONITOR IN PLACE. CONITNUE TO OSBERVE AND MONITOR.
[2018-06-23] VITALS: BP 120/68
--- NOTE | 2018-06-23 00:40 | NUR ---
PT IS RELAXING IN BED WITH EYES CLOSED NO DISTRESS NOTED. IV SITE IS FREE FROM REDNESS OR EDEMA. CONITNUE TO OSBERVE AND MONITOR.
--- NOTE | 2018-06-23 02:40 | NUR ---
REMOVED DRESSING ON ABD AND PACKING. SERO AND PURULENT DRAINAGE NOTED. REPLACED PACKING WITH 4X4 AND COVERED WITH ABD PAD. USING CLEAN TECHNIQUE . VANDANA REMAIN INTACT. CONTINUE TO OSBERVE AND MONITOR. PT TOLERATED WELL.
--- NOTE | 2018-06-23 04:30 | NUR ---
PT IS RELAXING IN BED WITH NO DISTRESS NOTED IV SITE IS FREE FROM REDNESS OR EDEMA. CONTINUE TO OSBERVE AND MONITOR.
[2018-06-23 05:27] VITALS: BP 137/68
[2018-06-23 06:06] LABS: HEMATOCRIT 31.1 % (37.0-47.0); IMMATURE GRANULOCYTES 0.8 % (0.0-5.0); MEAN CELL VOLUME 94.8 fL CALC (80.0-100.0); MEAN CORPUSCULAR HGB 31.4 pG CALC (26.0-32.0); MEAN CORPUSCULAR HGB CONC 33.1 g/L CALC (32.0-36.0); NEUT# 3.64 thou/uL (2.00-7.15); RED BLOOD COUNT 3.28 mill/uL (4.20-5.60); RED CELL DISTRI WIDTH 17.9 % (11.5-15.5)
[2018-06-23 06:07] LABS: HEMOGLOBIN 10.3 g/dl (12.0-16.0)
[2018-06-23 06:23] LABS: ALBUMIN 2.5 g/dL (3.2-5.0); ALKALINE PHOSPHATASE 71 u/l (38-126); ANION GAP 8 (6-22 (CALC)); BILIRUBIN, TOTAL 0.3 mg/dL (0.0-1.4); BUN 9 mg/dL (8-23); BUN/CREATININE RATIO 13 (12-20 (CALC)); CARBON DIOXIDE 27 mmol/l (22-30); CHLORIDE 107 mmol/l (95-108); CREATININE 0.7 mg/dL (0.5-1.0); GFR > 60 ML/MIN (>=60 (CALC)); GFR FOR AFR.AMER. > 60 ML/MIN (>=60 (CALC)); POTASSIUM 3.5 mmol/l (3.5-5.1); SGOT/AST 30 u/l (9-36); SODIUM 139 mmol/l (137-146); TOTAL PROTEIN 5.4 g/dL (6.3-8.2)
--- NOTE | 2018-06-23 07:15 | NUR ---
PT REPORT RECEIVED FROM RHEA RICCI. PT RESTING IN BED. NO S/S OD DISTRESS. CALL LIGHT IN REACH. WILL CONTINUE TO MONITOR
[2018-06-23 08:04] VITALS: BP 155/78
--- NOTE | 2018-06-23 08:04 | NUR ---
PT ASSESSMENT COMPLETE. PT A/O X3. SPEECH IS CLEAR. NONPRODUCTIVE COUGH NOTED. RESP EVEN AND UNLABORED. UPPER LOBE WHEEZING, LOWER LOBES DIMINISHED. TELE IN PLACE. BOWEL SOUNDS ACTIVE X4. PT HAS AN ABDOMINAL DRESSING,CDI. PT C/O ABDOMINAL TENDERNESS TO ALL FOUR QUADRANTS. STRONG RADIAL PULSES. RT PORT INTACT W/ D5 1/2 NS @75 FLOWING FREELY. REDNESS VISIBLE TO INNER THIGHS AND BUTTOCK. ENCOURAGED ELEVATION AND TURNING. TRACE OF EDEMA NOTED TO BLE. WEAK PEDAL PULSES. ENCOURAGED ELEVATION ON PILLOWS. PT DENIES ANY PAIN OR NEEDS. POC DISCUSSED. SAFETY PRECAUTIONS IN PLACE. CALL LIGHT IN REACH. WILL CONTINUE TO MONITOR
--- NOTE | 2018-06-23 08:30 | NUR ---
DRESSING TO PT ABDOMEN REMOVED. MODERATE SEROUS DRAINAGE VISIBLE. REDNESS AROUND INCISION. ALL VANDANA INTACT. SWELLING NOTED. AREA CLEANED W/ SALINE. 4X4 GUAZES, ABD PAD, AND PAPER TAPE APPLIED. WILL CONTINUE TO MONITOR
[2018-06-23 11:20] VITALS: BP 159/77
--- NOTE | 2018-06-23 11:52 | NUR ---
S: VIJAYA LEON is a 82 F who presents with wound infection She has a history of Chicken Pox/Herpes, HTN, Hyperlipidemia, hypothyroidism, GERD, CAD, CHF, HD, Cardiac Cath, Melanie, Pacemaker, PUD All medications in patient's chart were reviewed. O: VS: BP 155/78 , P 64, RR 20 ,T 97.6 Vancomycin Trough level = 17 W 106.594 kg, HT 180.34 cm, Scr= 0.7,CrCl= 60.29 ml/min A: Blood culture show no growth after 48 hours Wound culture show Staphylococcus Epidermidis which is sensitive to Vancomycin and resistant to Oxacillin Vancomycin Trough level above therapeutic range = 17 P: Patient is on Vancomycin. Vancomycin ordered for pharmacy to dose. Start Vancomycin 1500 mg IV Q12H. Vancomycin trough is drawn before the 4th dose on 06/25/18 @ 0830. Vancomycin goal trough is between 10-15 mcg/ml. Pharmacy will follow and or advise on antibiotics use as needed.
--- NOTE | 2018-06-23 12:00 | NUR ---
PT SLEEPING IN BED. RESP EVEN AND UNLABORED. NO C/O PAIN AT THIS TIME. CALL LIGHT IN REACH. WILL CONTINUE TO MONITOR
--- NOTE | 2018-06-23 14:12 | NUR ---
SPOKE WITH PATIENT ABOUT MEDICATIONS. CLARIFIED TIMES LAST TAKEN OF LOVASTATIN AND ASPIRIN. PATIENT HAD NO QUESTIONS ABOUT THERAPY AND UNDERSTOOD THAT COUNSELING IS AVAILABLE TO HER SHOULD ANY QUESTIONS ARISE.
--- NOTE | 2018-06-23 14:30 | NUR ---
DR. VILLEDA IN TO SEE PT. REQUESTING DRESSING TO BE CHANGED AT THIS TIME. DRESSING REMOVED. MODERATE SEROUS DRAINAGE. CLEANED W/ SALINE. 4X4 GUAZES, ABD PADS AND PAPER TAPE APPLIED. WILL CONTINUE TO MONITOR
--- NOTE | 2018-06-23 15:52 | NUR ---
PT C/O ACHING ABDOMINAL PAIN 8 OUT OF 10 ON PAIN SCALE. MEDICATED W/ 1 MG DILAUDID IV. UP TO RECLINER FOR COMFORT. PT DENIES ANY FURTHER NEEDS. CALL LIGHT IN REACH. BSC NEAR BED. WILL CONTINUE TO MONITOR
--- NOTE | 2018-06-23 16:26 | NUR ---
PT SITTING IN RECLINER. PT STATES PAIN HAS DECREASED TO A 6 OUT OF 10 ON PAIN SCALE. PT REQUESTING A BLANKET. CALL LIGHT IN REACH. BSC NEAR BED. WILL CONTINUE TO MONITOR
[2018-06-23 16:28] VITALS: BP 143/63
--- NOTE | 2018-06-23 17:30 | NUR ---
PT DRESSING REMOVED. EVERY OTHER STAPLE REMOVED PER MD REQUEST. NO BLOOD FROM STAPLE REMOVALS. INCISION SITE INTACT W/ SWELLING NOTED. SMALL AMOUNT OF SEROUS DRAINAGE VISIBLE. CLEANED W/ SALINE. 4X4 GUAZES, ABP PADS AND PAPER TAPE APPLIED. WILL CONTINUE TO MONITOR
[2018-06-24] VITALS: BP 171/72
[2018-06-24 04:00] VITALS: BP 162/78
--- NOTE | 2018-06-24 04:49 | NUR ---
PT RESTING IN BED WITH EYES CLOSED. NO PAIN OR DISTRESS NOTED. ANUP MONITOR.
[2018-06-24 05:07] LABS: HEMATOCRIT 32.3 % (37.0-47.0); HEMOGLOBIN 10.6 g/dl (12.0-16.0); IMMATURE GRANULOCYTES 0.7 % (0.0-5.0); MEAN CELL VOLUME 95.6 fL CALC (80.0-100.0); MEAN CORPUSCULAR HGB 31.4 pG CALC (26.0-32.0); MEAN CORPUSCULAR HGB CONC 32.8 g/L CALC (32.0-36.0); NEUT# 4.95 thou/uL (2.00-7.15); RED BLOOD COUNT 3.38 mill/uL (4.20-5.60)
[2018-06-24 05:28] LABS: ALBUMIN 2.7 g/dL (3.2-5.0); ALKALINE PHOSPHATASE 84 u/l (38-126); ANION GAP 9 (6-22 (CALC)); BILIRUBIN, TOTAL 0.2 mg/dL (0.0-1.4); BUN 7 mg/dL (8-23); BUN/CREATININE RATIO 11 (12-20 (CALC)); CARBON DIOXIDE 27 mmol/l (22-30); CHLORIDE 106 mmol/l (95-108); CREATININE 0.7 mg/dL (0.5-1.0); GFR > 60 ML/MIN (>=60 (CALC)); GFR FOR AFR.AMER. > 60 ML/MIN (>=60 (CALC)); POTASSIUM 3.5 mmol/l (3.5-5.1); SGOT/AST 38 u/l (9-36); SODIUM 139 mmol/l (137-146); TOTAL PROTEIN 5.5 g/dL (6.3-8.2)
--- NOTE | 2018-06-24 07:05 | NUR ---
BEDSIDE REPORT RECEIVED BY JAYASHREE. PT IS SLEEPING IN BED WITH NO S/S OF DISTRESS NOTED. CALL LIGHT IN REACH.
[2018-06-24 07:53] VITALS: BP 144/71
--- NOTE | 2018-06-24 08:01 | NUR ---
DR. ADAMES AT BEDSIDE. ASSESSMENT DONE. LUNG SOUND WHEEZES/DIMINISHED. RU PORT APPEARS HEALTHY. PT IS A&O X3. PT DENIES PAIN AT THIS TIME . PT STATED THAT SHE IS TIRED. ABD DRESSING IS CDI. SAFETY PRECAUTIONS REINFROCED AND CALL LIGHT IN REACH.
[2018-06-24 08:46] VITALS: BP 137/61
--- NOTE | 2018-06-24 10:17 | NUR ---
PT IS SITTING IN RECLINER. MEDICATED PT WITH TYLENOL FOR PAIN IN ABD SEE EMAR. COOL WASHCLOTH PROVIDED. LEGS ELEVATED X2 PILLOW IN PLACE. PT DENIES ANY OTHER NEEDS AT THIS TIME. CALL LIGHT IN REACH.
--- NOTE | 2018-06-24 10:35 | NUR ---
DRESSING CHANGE IN ABD INCISION. OLD BROWNISH DRAINAGE NOTED AND WITH MILD REDNESS NOTED IN INCISION. PT TOLERATED WELL. CALL LIGHT IN REACH.
--- NOTE | 2018-06-24 11:04 | NUR ---
PT IS SLEEPING IN RECLINER WITH NO S/S OF DISTRESS NOTED. LEGS ELEVATED X2 PILLOWS. CALL LIGHT IN REACH.
--- NOTE | 2018-06-24 14:55 | NUR ---
VANDANA TO BE REMOVED PER DR. VILLEDA. REMOVED 17 VANDANA AND DRESSING CHANGE. SMALL OPENING DEPTH IS 2CM DRESSING APPLIED. PT TOLERATED WELL. CALL LIGHT IN REACH.
--- NOTE | 2018-06-24 16:00 | NUR ---
Discharge instructions given. Patient verbalizes understanding of same. Discharged in stable condition via Wheelchair to [facility] with staff. All belongings sent with pt. RU PORT IN PLACE APPEARS HEALTHY.
--- NOTE | 2018-06-24 17:02 | NUR ---
CALLED 1610 [facility]HMA ANSWER STATED NO NURSE AVAILABLE AT THIS TIME LEFT MESSAGE. 1702. REPORT GIVEN TO TANNER FROM [facility].
== END 2018-06-24 14:38 | DRG 863 ==
LOC: ED 10:55 → ED-I 13:17 → ED 13:34 → MS2 13:35 → ED-I 13:35 → MS2 16:47
PROVIDERS: Family Medicine; Internal Medicine Nephrology; ADMIT Internal Medicine Geriatric Medicine; ATTEND Internal Medicine Geriatric Medicine
PROC: 30233N1 Transfusion of Nonautologous Red Blood Cells into Peripheral Vein, Percutaneous Approach (ICD-10-PCS; principal; 2018-06-22)
PROC: 30233N1 Transfusion of Nonautologous Red Blood Cells into Peripheral Vein, Percutaneous Approach (ICD-10-PCS; 2018-06-22)
DX: T81.41XA Infection following a procedure, superficial incisional surgical site, initial encounter (principal); L02.211 Cutaneous abscess of abdominal wall; D62 Acute posthemorrhagic anemia; I10 Essential (primary) hypertension; I48.91 Unspecified atrial fibrillation; F03.90 Unspecified dementia, unspecified severity, without behavioral disturbance, psychotic disturbance, mood disturbance, and anxiety; I25.10 Atherosclerotic heart disease of native coronary artery without angina pectoris; E03.9 Hypothyroidism, unspecified; E78.5 Hyperlipidemia, unspecified; F32.9 Major depressive disorder, single episode, unspecified; F41.1 Generalized anxiety disorder; E11.9 Type 2 diabetes mellitus without complications; K21.9 Gastro-esophageal reflux disease without esophagitis; C54.3 Malignant neoplasm of fundus uteri; M19.012 Primary osteoarthritis, left shoulder; B95.7 Other staphylococcus as the cause of diseases classified elsewhere; Y83.6 Removal of other organ (partial) (total) as the cause of abnormal reaction of the patient, or of later complication, without mention of misadventure at the time of the procedure; Z95.0 Presence of cardiac pacemaker; Z90.710 Acquired absence of both cervix and uterus
CPT/HCPCS: G0378; J1650; J3370; P9016; Q9967; S0073

== ENCOUNTER → 2018-09-08 | Outpatient (REF) | payer MEDICARE, OTHER ==
[~2018-09-08] VITALS: Ht 180.3 cm; Wt 99.3 kg
[~2018-09-08] MED LIST changes: +AMIODARONE200 MG PO; +CARVEDILOL6.25 MG PO; +COLACE100 MG PO; +DUONEB IN; +ENOXAPARIN40 MG/0.1 SC; +LASIX 20 MG TAB20 MG PO; +LIPITOR10 M1 PO; +LOMOTIL2.5 MG PO; +MAGNESIUM296 ML/BTL PO; +MIRALAX3350 NF PO; +MUPIROCIN2 % EX; +MUPIROCIN2 % TOP; +MV-ONE PO; +PERCOCET 10/31 COMBO PO; +ROBITUSSIN200 MG/10 PO; +TIZANIDINE4 MG PO; +TYLENOL325 M2 PO; +ZOLOFT25 MG PO
[2018-09-08 12:09] VITALS: BP 99/62
== END | disposition home or self-care (01) ==
LOC: PO 11:08 → ORM 11:15
PROVIDERS: ATTEND Internal Medicine Gastroenterology
DX: Z01.818 Encounter for other preprocedural examination (principal); R13.10 Dysphagia, unspecified; K21.9 Gastro-esophageal reflux disease without esophagitis; I10 Essential (primary) hypertension; I50.9 Heart failure, unspecified; M25.512 Pain in left shoulder; F41.8 Other specified anxiety disorders; Z95.0 Presence of cardiac pacemaker; I25.10 Atherosclerotic heart disease of native coronary artery without angina pectoris; E03.9 Hypothyroidism, unspecified; E78.5 Hyperlipidemia, unspecified; Z87.11 Personal history of peptic ulcer disease; Z90.49 Acquired absence of other specified parts of digestive tract; Z98.890 Other specified postprocedural states; Z74.3 Need for continuous supervision; S31.105D Unspecified open wound of abdominal wall, periumbilic region without penetration into peritoneal cavity, subsequent encounter; R32 Unspecified urinary incontinence; R60.0 Localized edema

== ENCOUNTER 2018-09-16 08:37 | Day surgery (SDC) | payer MEDICARE, OTHER ==
[~2018-09-16] VITALS: Ht 182.9 cm; Wt 80.7 kg
[~2018-09-16 08:37] MED LIST changes: -LOMOTIL2.5 MG PO; -TIZANIDINE4 MG PO
[2018-09-16 11:29] VITALS: BP 139/78
== END 2018-09-16 11:18 ==
LOC: ENDO 08:37 → ORM 08:45 → ENDO 10:50
PROVIDERS: ATTEND Internal Medicine Gastroenterology
PROC: 0D758ZZ Dilation of Esophagus, Via Natural or Artificial Opening Endoscopic (ICD-10-PCS; principal; 2018-09-16)
PROC: 0DB48ZX Excision of Esophagogastric Junction, Via Natural or Artificial Opening Endoscopic, Diagnostic (ICD-10-PCS; 2018-09-16)
DX: K21.9 Gastro-esophageal reflux disease without esophagitis (principal); K29.70 Gastritis, unspecified, without bleeding; Q40.8 Other specified congenital malformations of upper alimentary tract; I10 Essential (primary) hypertension; Z95.0 Presence of cardiac pacemaker

== ENCOUNTER → 2018-09-19 | Outpatient (REF) | payer MEDICARE, OTHER ==
[~2018-09-19] MED LIST changes: +LOMOTIL2.5 MG PO; +TIZANIDINE4 MG PO
[2018-09-19 09:33] VITALS: BP 110/55
== END ==
LOC: FIORUCCI 09:15 → FIOURUCCI 09:15 → FIORUCCI 09:23
PROVIDERS: ATTEND Surgery
DX: S31.109A Unspecified open wound of abdominal wall, unspecified quadrant without penetration into peritoneal cavity, initial encounter (principal); Z95.0 Presence of cardiac pacemaker

== ENCOUNTER 2018-09-21 03:48 | Observation (INO) | payer MEDICARE, OTHER ==
[~2018-09-21] VITALS: Ht 180.3 cm; Wt 99.9 kg
[~2018-09-21 03:48] MED LIST changes: -LOMOTIL2.5 MG PO; -TIZANIDINE4 MG PO
[2018-09-21] MEDS ORDERED: COLACE100 MG PO (04:01)
[2018-09-21 04:26] LABS: HEMATOCRIT 33.5 % (37.0-47.0); HEMOGLOBIN 10.6 g/dl (12.0-16.0); IMMATURE GRANULOCYTES 0.5 % (0.0-5.0); MEAN CELL VOLUME 94.9 fL CALC (80.0-100.0); MEAN CORPUSCULAR HGB CONC 31.6 g/L CALC (32.0-36.0); NEUT# 4.53 thou/uL (2.00-7.15); RED BLOOD COUNT 3.53 mill/uL (4.20-5.60); RED CELL DISTRI WIDTH 16.2 % (11.5-15.5)
[2018-09-21 05:39] LABS: ALKALINE PHOSPHATASE 84 u/l (38-126); ANION GAP 13 (6-22 (CALC)); BILIRUBIN, TOTAL 0.4 mg/dL (0.0-1.4); BUN 11 mg/dL (8-23); BUN/CREATININE RATIO 16 (12-20 (CALC)); CARBON DIOXIDE 26 mmol/l (22-30); CHLORIDE 104 mmol/l (95-108); CREATININE 0.7 mg/dL (0.5-1.0); GFR > 60 ML/MIN (>=60 (CALC)); GFR FOR AFR.AMER. > 60 ML/MIN (>=60 (CALC)); POTASSIUM 3.8 mmol/l (3.5-5.1); SGOT/AST 54 u/l (9-36); SODIUM 139 mmol/l (137-146); TOTAL PROTEIN 6.3 g/dL (6.3-8.2)
[2018-09-21 05:42] LABS: ALBUMIN 3.3 g/dL (3.2-5.0)
[2018-09-21 05:52] LABS: MYOGLOBIN 20 ng/mL (0 - 62)
[2018-09-21 07:39] VITALS: BP 122/60
[2018-09-21 10:44] LABS: URINE BILIRUBIN - DIPSTICK NEGATIVE (NEGATIVE); URINE BLOOD DIPSTICK NEGATIVE (NEGATIVE); URINE COLOR YELLOW; URINE GLUCOSE - DIPSTICK NEGATIVE (NEGATIVE); URINE KETONE TRACE mg/dL (NEGATIVE); URINE LEUK ESTERASE TRACE (NEGATIVE); URINE NITRITE - DIPSTICK NEGATIVE (Negative); URINE PH 5.5 (4.5-8.0); URINE PROTEIN - DIPSTICK NEGATIVE (NEG-TRACE); URINE SPECIFIC GRAVITY 1.025; URINE UROBILINOGEN - DIPSTICK 0.2 E.U./dL (0.2)
[2018-09-21 10:50] LABS: URINE BACTERIA MANY hpf; URINE SQUAMOUS EPITHELIAL CELL FEW EPI/hpf (0-FEW); URINE WBC 20-50 WBC/hpf (0-5)
[2018-09-21 12:20] VITALS: BP 132/54
[2018-09-21 16:00] VITALS: BP 121/64
[2018-09-21 20:00] VITALS: BP 131/46
[2018-09-22 00:23] VITALS: BP 134/69
[2018-09-22 03:58] VITALS: BP 140/59
[2018-09-22 05:18] LABS: HEMATOCRIT 32.1 % (37.0-47.0); HEMOGLOBIN 10.2 g/dl (12.0-16.0); IMMATURE GRANULOCYTES 0.5 % (0.0-5.0); MEAN CELL VOLUME 93.3 fL CALC (80.0-100.0); MEAN CORPUSCULAR HGB 29.7 pG CALC (26.0-32.0); MEAN CORPUSCULAR HGB CONC 31.8 g/L CALC (32.0-36.0); NEUT# 4.6 thou/uL (2.00-7.15); RED BLOOD COUNT 3.44 mill/uL (4.20-5.60)
[2018-09-22 05:39] LABS: ALBUMIN 2.9 g/dL (3.2-5.0); ALKALINE PHOSPHATASE 79 u/l (38-126); ANION GAP 11 (6-22 (CALC)); BILIRUBIN, TOTAL 0.4 mg/dL (0.0-1.4); BUN 10 mg/dL (8-23); BUN/CREATININE RATIO 16 (12-20 (CALC)); CALCULATED LDLCHOLESTEROL 96 mg/dL (62-129 (CALC)); CARBON DIOXIDE 27 mmol/l (22-30); CHLORIDE 104 mmol/l (95-108); CHOLESTEROL HDL RATIO 3.9 (<4.4 (CALC)); CREATININE 0.7 mg/dL (0.5-1.0); GFR > 60 ML/MIN (>=60 (CALC)); GFR FOR AFR.AMER. > 60 ML/MIN (>=60 (CALC)); HDL CHOLESTEROL 41 mg/dL (>=40); POTASSIUM 3.7 mmol/l (3.5-5.1); SGOT/AST 45 u/l (9-36); SODIUM 138 mmol/l (137-146); TOTAL CHOLESTEROL 158 mg/dl (0-199); TOTAL PROTEIN 5.7 g/dL (6.3-8.2); TOTAL TRIGLYCERIDES 103 mg/dl (30-149); VLDL CHOLESTROL 21 mg/dl (0-48 (CALC))
[2018-09-22 08:35] VITALS: BP 130/55
[2018-09-22 11:15] VITALS: BP 136/45
== END 2018-09-22 14:15 ==
LOC: ED 03:48 → ED-I 04:16 → ED 06:04 → MS2 06:05
PROVIDERS: Emergency Medicine; ADMIT Internal Medicine Geriatric Medicine; ATTEND Internal Medicine Geriatric Medicine
DX: R07.89 Other chest pain (principal); I10 Essential (primary) hypertension; I25.10 Atherosclerotic heart disease of native coronary artery without angina pectoris; E78.5 Hyperlipidemia, unspecified; E03.9 Hypothyroidism, unspecified; F41.9 Anxiety disorder, unspecified; F03.90 Unspecified dementia, unspecified severity, without behavioral disturbance, psychotic disturbance, mood disturbance, and anxiety; E11.9 Type 2 diabetes mellitus without complications; M19.012 Primary osteoarthritis, left shoulder; T81.49XD Infection following a procedure, other surgical site, subsequent encounter; Y83.6 Removal of other organ (partial) (total) as the cause of abnormal reaction of the patient, or of later complication, without mention of misadventure at the time of the procedure; Z95.0 Presence of cardiac pacemaker; Z85.42 Personal history of malignant neoplasm of other parts of uterus; Z90.710 Acquired absence of both cervix and uterus; R00.2 Palpitations; R06.02 Shortness of breath

== ENCOUNTER → 2018-09-28 | Outpatient (REF) | payer OTHER ==
[~2018-09-28] MED LIST changes: +LOMOTIL2.5 MG PO; +TIZANIDINE4 MG PO
[2018-09-29 01:24] LABS: C. DIFFICILE TOXIN A&B NEGATIVE (NEGATIVE)
== END | disposition home or self-care (01) | DRG 392 ==
LOC: LABSPEC 23:41
PROVIDERS: ATTEND Internal Medicine Geriatric Medicine
DX: R19.7 Diarrhea, unspecified (principal); A04.72 Enterocolitis due to Clostridium difficile, not specified as recurrent

== ENCOUNTER → 2018-10-03 | Outpatient (REF) | payer MEDICARE, OTHER ==
[2018-10-03 09:37] VITALS: BP 103/56
--- NOTE | 2018-10-05 12:17 | NUR ---
ADDENDUM TO NOTE: THE WOUND IS 2 1/2 CM IN DEPTH AND 1 CM IN WIDTH.
== END ==
LOC: FIORUCCI 08:58
PROVIDERS: ATTEND Surgery
PROC: 0HQ7XZZ Repair Abdomen Skin, External Approach (ICD-10-PCS; principal; 2018-10-03)
DX: S31.109A Unspecified open wound of abdominal wall, unspecified quadrant without penetration into peritoneal cavity, initial encounter (principal)

== ENCOUNTER 2018-10-09 00:47 | Observation (INO) | payer MEDICARE, OTHER ==
[~2018-10-09] VITALS: Ht 180.3 cm; Wt 99.0 kg
[~2018-10-09 00:47] MED LIST changes: -LOMOTIL2.5 MG PO; -TIZANIDINE4 MG PO
--- NOTE | 2018-10-09 00:58 | NUR ---
BY EMS TO ROOM
--- NOTE | 2018-10-09 01:10 | NUR ---
WAARM BLANKETS APPLIED
[2018-10-09 02:02] LABS: HEMATOCRIT 33.4 % (37.0-47.0); HEMOGLOBIN 10.5 g/dl (12.0-16.0); IMMATURE GRANULOCYTES 0.4 % (0.0-5.0); MEAN CELL VOLUME 93.8 fL CALC (80.0-100.0); MEAN CORPUSCULAR HGB 29.5 pG CALC (26.0-32.0); MEAN CORPUSCULAR HGB CONC 31.4 g/L CALC (32.0-36.0); NEUT# 4.25 thou/uL (2.00-7.15); RED BLOOD COUNT 3.56 mill/uL (4.20-5.60); RED CELL DISTRI WIDTH 16.3 % (11.5-15.5)
[2018-10-09 02:20] LABS: ACT PARTIAL THROMBO TIME 21.1 SECONDS (20.0-32.5); ALBUMIN 3.3 g/dL (3.2-5.0); ALKALINE PHOSPHATASE 82 u/l (38-126); ANION GAP 12 (6-22 (CALC)); BILIRUBIN, TOTAL 0.3 mg/dL (0.0-1.4); BUN 14 mg/dL (8-23); BUN/CREATININE RATIO 20 (12-20 (CALC)); CARBON DIOXIDE 27 mmol/l (22-30); CHLORIDE 103 mmol/l (95-108); CREATININE 0.7 mg/dL (0.5-1.0); GFR > 60 ML/MIN (>=60 (CALC)); GFR FOR AFR.AMER. > 60 ML/MIN (>=60 (CALC)); POTASSIUM 3.2 mmol/l (3.5-5.1); PROTHROMBIN TIME 10.4 SECONDS (9.0-12.5); SGOT/AST 47 u/l (9-36); SODIUM 139 mmol/l (137-146); TOTAL PROTEIN 6.5 g/dL (6.3-8.2)
[2018-10-09 02:31] LABS: MYOGLOBIN 14 ng/mL (0 - 62)
--- NOTE | 2018-10-09 02:55 | NUR ---
LEST PAIN W/P/D SKIN PACED RHY 60BPM NO COUGH OR CONGESTION HOB LOWERED FOR PT'S COMFORT AND NEW WARM BLANKETS APPLIED
[2018-10-09 03:32] LABS: URINE BILIRUBIN - DIPSTICK NEGATIVE (NEGATIVE); URINE BLOOD DIPSTICK NEGATIVE (NEGATIVE); URINE COLOR YELLOW; URINE GLUCOSE - DIPSTICK NEGATIVE (NEGATIVE); URINE KETONE NEGATIVE (NEGATIVE); URINE LEUK ESTERASE TRACE (NEGATIVE); URINE NITRITE - DIPSTICK NEGATIVE (Negative); URINE PROTEIN - DIPSTICK NEGATIVE (NEG-TRACE); URINE SPECIFIC GRAVITY 1.025; URINE UROBILINOGEN - DIPSTICK 0.2 E.U./dL (0.2)
--- NOTE | 2018-10-09 04:15 | NUR ---
PHONE REPORT TO NURSE BERTA ON MS2
--- NOTE | 2018-10-09 04:21 | NUR ---
PT TRANSPORTED TO [place] VIA STRETCHER RN ESCORT ON TELE IN STABLE CONDITION
[2018-10-09 04:36] VITALS: BP 135/65
--- NOTE | 2018-10-09 05:30 | NUR ---
PATIENT ADMITTED FROM ER VIA STRETCHER WITH ER STAFF IN ATTENDANCE. PATIENT IS ASSIST TO THE STANDING SCALE AND THEN ASSISTED TO BED. PATIENT IS ALERT AND ORIENTEDX3 C/O LEFT CHEST AND LEFT ARM PAIN-7/10. PATIENT MEDICATED WITH MOTRIN 800MG PO AND WITH PEPCID IVP. PATIENT WITH RIGHT UPPER CHEST PORT-SITE APPEARS HEALTH WITH GOOD BLOOD RETURN. PATIENT ORIENTED TO ROOM AND SURROUNDINGS. INSTRUCTED ON USE OF NURSE CALL LIGHT SYSTEM, TV REMOTE AND PHONE. SAFETY PRECAUTIONS REINFORCED. CALL LIGHT IN REACH. WILL CONT TO MONITOR.
[2018-10-09 06:05] LABS: CHOLESTEROL HDL RATIO 4.1 (<4.4 (CALC))
[2018-10-09 06:36] LABS: TSH, 3RD GENERATION 4.29 uIU/mL (0.47 - 4.68)
--- NOTE | 2018-10-09 08:00 | NUR ---
ASSESSMENT DONE. PT IS A&O X3. RESPS EVEN AND UNLABORED. PT STATED PAIN IN LEFT SHOULDER 01/25 BUT DENIES ANY PAIN MEDICATION AT THIS TIME. TELE IN PLACE. SAFETY PRECAUTIONS REINFORCED AND CALL LIGHT IN REACH.
[2018-10-09 08:07] VITALS: BP 128/69
--- NOTE | 2018-10-09 10:40 | NUR ---
DRESSING CHANGE TO ABD PER ORDER AND PICTURE TAKEN. PT TOLERATED WELL. CALL LIGHT IN REACH.
--- NOTE | 2018-10-09 12:00 | NUR ---
PT IS SITTING IN THE SIDE OF THE BED EATING HER LUNCH. PT DENIES ANY NEEDS AT THIS TIME. CALL LIGHT IN REACH.
[2018-10-09 12:54] VITALS: BP 108/60
--- NOTE | 2018-10-09 15:28 | NUR ---
PT IS SLEEPING IN BED WITH NO S/S OF DISTRESS NOTED. TELE IN PLACE. CALL LIGHT IN REACH.
[2018-10-09 16:07] VITALS: BP 121/70
--- NOTE | 2018-10-09 19:00 | NUR ---
REPORT RECEIVED FROM LYDIA SULLIVAN. PT RESTING IN BED, ALERT AND ORIENTED. RESPIRATIONS EVEN AND UNLABORED. SAFETY PRECAUTIONS IN PLACE. WILL CONTINUE TO MONITOR.
[2018-10-09 19:16] VITALS: BP 118/62
--- NOTE | 2018-10-09 21:39 | NUR ---
PT RESTING IN BED WITH EYES CLOSED, EASILY AROUSED, ALERT AND ORIENTED. RESPIRATIONS EVEN AND UNLABORED. PT REPORTS HAVING PIAN OF A 7 OUT OF 10, MEDICATED PER EMAR ORDERS. PORT FLUSHED WELL AND HEPARINIZED. PT PROVIDED WITH GRAPE JUICE PER REQUEST. SAFETY PRECAUTIONS IN PLACE, WILL CONTINUE TO MONITOR.
[2018-10-10 00:07] VITALS: BP 129/60
--- NOTE | 2018-10-10 01:01 | NUR ---
PT RESTING IN WITH EYES CLOSED, RESPIRATIONS EVEN AND UNLABORED. SAFETY PRECAUTIONS IN PLACE. WILL CONTINUE TO MONITOR.
[2018-10-10 04:45] VITALS: BP 125/59
--- NOTE | 2018-10-10 05:50 | NUR ---
PT RESTING IN BED, AROUSED TO SPEECH. PORT FLUSHED AND BLOOD DRAWN AT THIS TIME, FLUSHED PER PROTOCAL.PT TOLERATED WELL. PT REPPORTS HAVING NECK PAIN AND A HEAD ACHE AT THIS TIME WITH PAIN OF 7 OUT OF 10, TO BE MEDICATED PER EMAR ORDERS. SAFETY PRECAUTIONS IN PLACE, WILL CONTINUE TO MONITOR.
[2018-10-10 06:23] LABS: HEMOGLOBIN 10.2 g/dl (12.0-16.0); IMMATURE GRANULOCYTES 0.3 % (0.0-5.0); MEAN CELL VOLUME 93.8 fL CALC (80.0-100.0); MEAN CORPUSCULAR HGB 29.9 pG CALC (26.0-32.0); MEAN CORPUSCULAR HGB CONC 31.9 g/L CALC (32.0-36.0); NEUT# 4.39 thou/uL (2.00-7.15); RED BLOOD COUNT 3.41 mill/uL (4.20-5.60); RED CELL DISTRI WIDTH 16.7 % (11.5-15.5)
[2018-10-10 06:44] LABS: ALBUMIN 3.2 g/dL (3.2-5.0); ALKALINE PHOSPHATASE 77 u/l (38-126); ANION GAP 12 (6-22 (CALC)); BILIRUBIN, TOTAL 0.4 mg/dL (0.0-1.4); BUN 16 mg/dL (8-23); BUN/CREATININE RATIO 22 (12-20 (CALC)); CARBON DIOXIDE 27 mmol/l (22-30); CHLORIDE 104 mmol/l (95-108); CREATININE 0.7 mg/dL (0.5-1.0); GFR > 60 ML/MIN (>=60 (CALC)); GFR FOR AFR.AMER. > 60 ML/MIN (>=60 (CALC)); POTASSIUM 3.9 mmol/l (3.5-5.1); SGOT/AST 53 u/l (9-36); SODIUM 139 mmol/l (137-146); TOTAL PROTEIN 5.9 g/dL (6.3-8.2)
--- NOTE | 2018-10-10 08:00 | NUR ---
ASSESSMENT DONE. PT IS A&O X3. PT DENIES ANY PAIN AT THIS TIME. RU PORT APPEAR HEALTHY. DRESSING IN ABD IN PLACE. PT STATED WHEN SHE WENT TO THE BSC SHE NOTICE HER SORE IN BUTTOCKS OPEN. A DUODERM PLACE ON BUTTOCKS AND PICTURE TAKEN. CALL LIGHT IN REACH.
[2018-10-10 08:26] VITALS: BP 110/65
[2018-10-10] MEDS ORDERED: TIZANIDINE4 MG PO (08:32)
[2018-10-10 11:00] VITALS: BP 122/63
[2018-10-10 12:00] VITALS: BP 122/63
--- NOTE | 2018-10-10 12:30 | NUR ---
CHANGE DRESSING IN ABD PER ORDER. OLD BLOODY DRAINAGE NOTED. PT TOLERATED WELL. PT DENIES ANY PAIN. PT STATED SHE FEEL COLD CHECK TEMP 98.0. PT HAVING LOOSE BM. CALLED DR. ADAMES RE: BM. ORDERS RECEIVED.
[2018-10-10 13:57] LABS: C. DIFFICILE TOXIN A&B NEGATIVE (NEGATIVE)
--- NOTE | 2018-10-10 14:23 | NUR ---
CALLED DR. ADAMES RE: C.DIFF RESULTS C.DIFF NEG AND C.DIFF ANTIGEN POSTIVE. STATED PT CAN GO TO REHAB.
[2018-10-10] MEDS ORDERED: LOMOTIL2.5 MG PO (15:11)
--- NOTE | 2018-10-10 15:11 | NUR ---
PORT FLUSHED FREELY, GOOD ASPIRATE NOTED; PT TOLERATED WELL.
--- NOTE | 2018-10-10 15:58 | NUR ---
Discharge instructions given. Patient verbalizes understanding of same. Discharged in stable condition via Wheelchair to [facility] with staff. All belongings sent with pt.
--- NOTE | 2018-10-10 16:00 | NUR ---
LEFT A MESSAGE WITH KARLENE FROM REHAB FOR THE NURSE TO CALL WHEN READY FOR REPORT.
== END 2018-10-10 15:58 ==
LOC: ED 00:47 → ED-I 00:55 → ED 00:55 → ED-I 03:51 → ED 04:06 → MS2 04:07
PROVIDERS: Emergency Medicine; ADMIT Internal Medicine Geriatric Medicine; ATTEND Internal Medicine Geriatric Medicine
DX: M19.012 Primary osteoarthritis, left shoulder (principal); I10 Essential (primary) hypertension; E11.9 Type 2 diabetes mellitus without complications; E03.9 Hypothyroidism, unspecified; E78.5 Hyperlipidemia, unspecified; I25.10 Atherosclerotic heart disease of native coronary artery without angina pectoris; F41.1 Generalized anxiety disorder; F32.9 Major depressive disorder, single episode, unspecified; K27.9 Peptic ulcer, site unspecified, unspecified as acute or chronic, without hemorrhage or perforation; K21.9 Gastro-esophageal reflux disease without esophagitis; Z95.0 Presence of cardiac pacemaker; K52.9 Noninfective gastroenteritis and colitis, unspecified; C55 Malignant neoplasm of uterus, part unspecified; T81.41XA Infection following a procedure, superficial incisional surgical site, initial encounter; Y83.6 Removal of other organ (partial) (total) as the cause of abnormal reaction of the patient, or of later complication, without mention of misadventure at the time of the procedure; R07.89 Other chest pain

== ENCOUNTER 2019-03-10 11:51 | Observation (INO) | payer MEDICARE, OTHER ==
[~2019-03-10] VITALS: Ht 180.3 cm; Wt 94.4 kg
[~2019-03-10 11:51] MED LIST changes: +LOMOTIL2.5 MG PO; +TIZANIDINE4 MG PO
[2019-03-10 12:18] VITALS: BP 128/46
[2019-03-10] MEDS ORDERED: KLOR-CON 1010 MEQ PO (14:05)
[2019-03-10] MEDS ORDERED: ERTAPENEM1 GM IM (14:21)
[2019-03-10 15:03] VITALS: BP 121/66
[2019-03-10 16:50] LABS: HEMOGLOBIN 11.1 g/dl (12.0-16.0); IMMATURE GRANULOCYTES 0.5 % (0.0-5.0); MEAN CELL VOLUME 95.2 fL CALC (80.0-100.0); MEAN CORPUSCULAR HGB 31.1 pG CALC (26.0-32.0); MEAN CORPUSCULAR HGB CONC 32.6 g/L CALC (32.0-36.0); NEUT# 6.41 thou/uL (2.00-7.15); RED BLOOD COUNT 3.57 mill/uL (4.20-5.60); RED CELL DISTRI WIDTH 13.5 % (11.5-15.5)
[2019-03-10 17:30] LABS: CREATININE 1.9 mg/dL (0.5-1.0); POTASSIUM 4.4 mmol/l (3.5-5.1)
[2019-03-10 19:42] LABS: URINE BILIRUBIN - DIPSTICK NEGATIVE (NEGATIVE); URINE BLOOD DIPSTICK LARGE (NEGATIVE); URINE COLOR YELLOW; URINE GLUCOSE - DIPSTICK NEGATIVE (NEGATIVE); URINE KETONE NEGATIVE (NEGATIVE); URINE LEUK ESTERASE NEGATIVE (NEGATIVE); URINE NITRITE - DIPSTICK NEGATIVE (Negative); URINE PROTEIN - DIPSTICK NEGATIVE (NEG-TRACE); URINE UROBILINOGEN - DIPSTICK 0.2 E.U./dL (0.2)
[2019-03-10 20:04] VITALS: BP 106/60
[2019-03-10 20:22] LABS: URINE RBC TNTC RBC/hpf (0-5); URINE SQUAMOUS EPITHELIAL CELL FEW EPI/hpf (0-FEW)
[2019-03-11 04:16] VITALS: BP 97/56
[2019-03-11 07:00] VITALS: BP 122/76
[2019-03-11 07:41] LABS: HEMATOCRIT 30.4 % (37.0-47.0); HEMOGLOBIN 9.8 g/dl (12.0-16.0); IMMATURE GRANULOCYTES 0.4 % (0.0-5.0); MEAN CELL VOLUME 95.9 fL CALC (80.0-100.0); MEAN CORPUSCULAR HGB 30.9 pG CALC (26.0-32.0); MEAN CORPUSCULAR HGB CONC 32.2 g/L CALC (32.0-36.0); NEUT# 4.9 thou/uL (2.00-7.15); RED BLOOD COUNT 3.17 mill/uL (4.20-5.60); RED CELL DISTRI WIDTH 13.6 % (11.5-15.5)
[2019-03-11 08:01] LABS: ALBUMIN 3.1 g/dL (3.2-5.0); BILIRUBIN, TOTAL 0.4 mg/dL (0.0-1.4); CHOLESTEROL HDL RATIO 3.4 (<4.4 (CALC)); CREATININE 1.6 mg/dL (0.5-1.0); POTASSIUM 4.2 mmol/l (3.5-5.1); TOTAL PROTEIN 6.3 g/dL (6.3-8.2)
[2019-03-11 15:11] VITALS: BP 127/47
[2019-03-11 16:24] LABS: INTERNATIONAL NORMALIZED RATIO 1.1 RATIO (0.7-1.3); PROTHROMBIN TIME 11.1 SECONDS (9.0-12.5)
[2019-03-11 19:41] VITALS: BP 95/42
[2019-03-12 04:40] VITALS: BP 104/40
[2019-03-12 05:46] LABS: HEMOGLOBIN 10.8 g/dl (12.0-16.0); IMMATURE GRANULOCYTES 0.5 % (0.0-5.0); MEAN CELL VOLUME 96.9 fL CALC (80.0-100.0); MEAN CORPUSCULAR HGB 30.8 pG CALC (26.0-32.0); MEAN CORPUSCULAR HGB CONC 31.8 g/L CALC (32.0-36.0); NEUT# 5.59 thou/uL (2.00-7.15); RED BLOOD COUNT 3.51 mill/uL (4.20-5.60); RED CELL DISTRI WIDTH 13.7 % (11.5-15.5)
[2019-03-12 05:54] LABS: ALBUMIN 3.5 g/dL (3.2-5.0); BILIRUBIN, TOTAL 0.5 mg/dL (0.0-1.4); CREATININE 1.6 mg/dL (0.5-1.0); POTASSIUM 4.3 mmol/l (3.5-5.1); TOTAL PROTEIN 6.8 g/dL (6.3-8.2)
[2019-03-12 08:00] VITALS: BP 116/45
[2019-03-12 14:50] VITALS: BP 115/51
[2019-03-12 19:37] VITALS: BP 123/66
[2019-03-13] VITALS (9 sets, daily range): BP systolic 100–139; BP diastolic 51–68
[2019-03-13 09:33] LABS: HEMATOCRIT 30.3 % (37.0-47.0); HEMOGLOBIN 9.5 g/dl (12.0-16.0); IMMATURE GRANULOCYTES 0.4 % (0.0-5.0); MEAN CELL VOLUME 98.4 fL CALC (80.0-100.0); MEAN CORPUSCULAR HGB 30.8 pG CALC (26.0-32.0); MEAN CORPUSCULAR HGB CONC 31.4 g/L CALC (32.0-36.0); NEUT# 4.39 thou/uL (2.00-7.15); RED BLOOD COUNT 3.08 mill/uL (4.20-5.60); RED CELL DISTRI WIDTH 13.9 % (11.5-15.5)
== END 2019-03-13 18:30 | disposition home health service (06) ==
LOC: MS2 11:51
PROVIDERS: ADMIT Internal Medicine Geriatric Medicine; ATTEND Internal Medicine Geriatric Medicine
PROC: BF25ZZZ Computerized Tomography (CT Scan) of Liver (ICD-10-PCS; principal; 2019-03-13)
PROC: 0FB13ZX Excision of Right Lobe Liver, Percutaneous Approach, Diagnostic (ICD-10-PCS; 2019-03-13)
DX: C78.7 Secondary malignant neoplasm of liver and intrahepatic bile duct (principal); N93.9 Abnormal uterine and vaginal bleeding, unspecified; N39.0 Urinary tract infection, site not specified; I25.10 Atherosclerotic heart disease of native coronary artery without angina pectoris; I12.9 Hypertensive chronic kidney disease with stage 1 through stage 4 chronic kidney disease, or unspecified chronic kidney disease; E11.22 Type 2 diabetes mellitus with diabetic chronic kidney disease; N18.9 Chronic kidney disease, unspecified; F19.20 Other psychoactive substance dependence, uncomplicated; F41.8 Other specified anxiety disorders; F03.90 Unspecified dementia, unspecified severity, without behavioral disturbance, psychotic disturbance, mood disturbance, and anxiety; I48.91 Unspecified atrial fibrillation; K21.9 Gastro-esophageal reflux disease without esophagitis; K27.9 Peptic ulcer, site unspecified, unspecified as acute or chronic, without hemorrhage or perforation; E03.9 Hypothyroidism, unspecified; E78.5 Hyperlipidemia, unspecified; M15.0 Primary generalized (osteo)arthritis; Z85.42 Personal history of malignant neoplasm of other parts of uterus; Z95.0 Presence of cardiac pacemaker; Z90.710 Acquired absence of both cervix and uterus; Z91.19 Patient's noncompliance with other medical treatment and regimen
CPT/HCPCS: J1335

== ENCOUNTER 2019-05-09 16:17 | Inpatient (IN) | payer MEDICARE, OTHER ==
[~2019-05-09] VITALS: Ht 180.3 cm; Wt 96.2 kg
[~2019-05-09 16:17] MED LIST changes: +ERTAPENEM1 GM IM; +KLOR-CON 1010 MEQ PO
--- NOTE | 2019-05-09 16:17 | NUR ---
Pt on EMS stretcher in [facility] d/t busy ER. Foreclosure Field Inspector with pt
--- NOTE | 2019-05-09 16:26 | NUR ---
Pt to room # 13 via EMS stretcher
--- NOTE | 2019-05-09 16:45 | NUR ---
NASAL TRUMPET TO LEFT NARE BY .
--- NOTE | 2019-05-09 17:30 | NUR ---
PORT ACCESSED, BLOOD WORK COLLECTED AND FLUIDS STARTED.
[2019-05-09 17:41] LABS: HEMATOCRIT 27.6 % (37.0-47.0); HEMOGLOBIN 8.4 g/dl (12.0-16.0); IMMATURE GRANULOCYTES 0.5 % (0.0-5.0); MEAN CELL VOLUME 99.3 fL CALC (80.0-100.0); MEAN CORPUSCULAR HGB 30.2 pG CALC (26.0-32.0); MEAN CORPUSCULAR HGB CONC 30.4 g/L CALC (32.0-36.0); NEUT# 10.64 thou/uL (2.00-7.15); RED BLOOD COUNT 2.78 mill/uL (4.20-5.60); RED CELL DISTRI WIDTH 14.9 % (11.5-15.5)
[2019-05-09 17:55] LABS: ALBUMIN 3.2 g/dL (3.2-5.0); TOTAL PROTEIN 6.8 g/dL (6.3-8.2)
--- NOTE | 2019-05-09 17:55 | NUR ---
INFORMED OF NO CHANGE IN PATIENT STATUS SINCE ARRIVAL AND PATIENT CONTINUES TO BE HYPOTENSIVE. CT ON HOLD AT THIS TIME.
[2019-05-09 17:58] LABS: INTERNATIONAL NORMALIZED RATIO 1.1 RATIO (0.7-1.3); PROTHROMBIN TIME 11.6 SECONDS (9.0-12.5)
[2019-05-09 18:03] LABS: BILIRUBIN, TOTAL 0.6 mg/dL (0.0-1.4); CREATININE 4.5 mg/dL (0.5-1.0); POTASSIUM 5.7 mmol/l (3.5-5.1)
--- NOTE | 2019-05-09 18:35 | NUR ---
BEDSIDE REPORT GIVEN TO LYDIA AVILES. UNCHANGED CONDITION. CARE RELINQUISHED.
--- NOTE | 2019-05-09 18:55 | NUR ---
INITIATED LEVOPHED DRIP. FAMILY AT BEDSIDE.
--- NOTE | 2019-05-09 18:59 | NUR ---
INCREASED LEVOPHED TO 2 MCG/MIN
--- NOTE | 2019-05-09 19:04 | NUR ---
AROUSES TO VOICE OPENS EYES SPEECH APPROPRIATE.
--- NOTE | 2019-05-09 19:38 | NUR ---
INCREASED LEVOPHED TO 6 MCG/MIN
--- NOTE | 2019-05-09 19:55 | NUR ---
CLEANED OF COPIOUS LIQUID STOOL.
--- NOTE | 2019-05-09 20:20 | NUR ---
INCREASED LEVO DRIP TO 8 MCG/MIN. PT MUCH MORE AWAKE AND C/O ABD PAIN.
[2019-05-09 20:27] LABS: URINE BILIRUBIN - DIPSTICK NEGATIVE (NEGATIVE); URINE BLOOD DIPSTICK TRACE-INTACT (NEGATIVE); URINE COLOR YELLOW; URINE GLUCOSE - DIPSTICK NEGATIVE (NEGATIVE); URINE KETONE NEGATIVE (NEGATIVE); URINE NITRITE - DIPSTICK NEGATIVE (Negative); URINE PROTEIN - DIPSTICK NEGATIVE (NEG-TRACE); URINE UROBILINOGEN - DIPSTICK 0.2 E.U./dL (0.2)
[2019-05-09 20:29] LABS: URINE LEUK ESTERASE MODERATE (NEGATIVE)
[2019-05-09 20:37] LABS: URINE BACTERIA MANY hpf; URINE SQUAMOUS EPITHELIAL CELL FEW EPI/hpf (0-FEW); URINE WBC 20-50 WBC/hpf (0-5)
--- NOTE | 2019-05-09 21:30 | NUR ---
INCREASED LEVO DRIP TO 10 MCG/MIN
--- NOTE | 2019-05-09 22:06 | NUR ---
INCREASED LEVO DRIP TO 14 MCG/MIN
--- NOTE | 2019-05-09 22:14 | NUR ---
INCREASED LEVOPHED TO 16 MCG/MIN
[2019-05-09] MEDS ORDERED: FUROSEMIDE20 MG PO (22:31)
[2019-05-09] MEDS ORDERED: SERTRALINE50 MG PO (22:33)
[2019-05-09] MEDS ORDERED: MIRALAX3350 N1 PO (22:34)
[2019-05-09] MEDS ORDERED: COMPAZINE10 MG PO (22:35)
[2019-05-09] MEDS ORDERED: GABAPENTIN300 M2 PO (22:37)
--- NOTE | 2019-05-09 22:55 | NUR ---
LEVO DRIP TO 18 MCG/MIN
--- NOTE | 2019-05-09 23:30 | NUR ---
AROUSES TO VOICE NO C/O
--- NOTE | 2019-05-09 23:35 | NUR ---
Admission Note Report Given to: LYDIA YIN Transported by: Wheelchair X Stretcher Transported with: X Nurse Transporter X Patent IV X O2 X Solar Designer/Installer
--- NOTE | 2019-05-09 23:45 | NUR ---
ARRIVES VIA STRETCHER FROM ER. AROUSABLE TO LIGHT VERBAL STIMULI. RESPS EVEN AND UNLABORED. LUNGS CLEAR TO AUSCULTATION. IV FLUIDS INFUSING AT 150 ML/HR AND LEVOPHED DRIP INFUSING AT 18 MCG. BP ON ARRIVAL IS 90/45. WILL CONTINUE TO CLOSELY MONITOR. PT. ARRIVES WITH CATHETER IN PLACE. 2+ LOWER EXT EDEMA NOTED. PORT TO RT. CHEST WALL ACCESSED ON ARRIVAL WITH LEVOPHED INFUSING. CALL LIGHT WITHIN REACH AND EXPLAINED TO PATIENT. ORIENTED TO PERSON AND PLACE AT THIS TIME.
[2019-05-09 23:55] VITALS: BP 96/47
[2019-05-10] VITALS (29 sets, daily range): BP systolic 54–116; BP diastolic 32–71
--- NOTE | 2019-05-10 01:18 | NUR ---
RESTING IN BED IN NO DISTRESS. BP REMAINS HYPOTENSIVE WITH 18 MCG LEVOPHED INFUSING. CALL LIGHT WITHIN REACH. PROVIDED WITH SIPS OF WATER. ASSISTED TO BEDPAN, BUT PATIENT NOW DENIES NEED FOR BM, BUT STATES SHE NEEDS TO URINATE. AGAIN EXPLAINED THAT SHE HAS A CATHETER.
--- NOTE | 2019-05-10 03:15 | NUR ---
PT. RESTING IN BED WITH EYES CLOSED IN NO DISTRESS. REMAINS PACED ON THE MONITOR. INTERMITTENTLY AWAKENS AND COMPLAINS OF PAIN, BUT GOES RIGHT BACK TO SLEEP. APENIC RESPIRATIONS NOTED. SPO2 OCCASIONALLY IN THE MID 80'S. CHANGED TO 4L ON NC. INTERMITTENT COUGH NOTED.
--- NOTE | 2019-05-10 05:37 | NUR ---
PT. CONTINUES WITH INTERMITTENT COUGH. PROVIDED WITH WATER PER HER REQUEST. SKIN REMAINS WARM AND DRY. RESPS EVEN AND UNLABORED. SPO2 AND BP REMAIN STABLE. PT. REMAINS ON LEVOPHED DRIP AT 18 MCG AT THIS TIME. CALL LIGHT REMAINS WITHIN REACH. WILL CONTINUE TO ASSESS.
--- NOTE | 2019-05-10 06:05 | NUR ---
RECTAL SWAB OBTAINED AND SENT TO LAB AT THIS TIME.
--- NOTE | 2019-05-10 06:50 | NUR ---
REPORT RECVD FROM LYDIA YIN @START OF SHIFT.
--- NOTE | 2019-05-10 06:59 | NUR ---
IVF/LEVOPHED STOPPED FOR UPCOMING LAB DRAW OUT OF PORT, PER LAB WHO STATES PT IS A HARD STICK. PT REQUEST PORT DRAW WELL.
--- NOTE | 2019-05-10 07:15 | NUR ---
PT SLEEPING IN BED. LABS DRAWN FROM PORT & IVF/LEVOPHED RESTARTED. PT RETURNED TO SLEEP.
[2019-05-10 07:41] LABS: HEMATOCRIT 28.3 % (37.0-47.0); HEMOGLOBIN 8.6 g/dl (12.0-16.0); IMMATURE GRANULOCYTES 0.7 % (0.0-5.0); MEAN CORPUSCULAR HGB 30.1 pG CALC (26.0-32.0); MEAN CORPUSCULAR HGB CONC 30.4 g/L CALC (32.0-36.0); NEUT# 11.87 thou/uL (2.00-7.15); RED BLOOD COUNT 2.86 mill/uL (4.20-5.60); RED CELL DISTRI WIDTH 14.9 % (11.5-15.5)
[2019-05-10 08:04] LABS: ALBUMIN 2.6 g/dL (3.2-5.0); BILIRUBIN, TOTAL 0.4 mg/dL (0.0-1.4); CREATININE 3.7 mg/dL (0.5-1.0); POTASSIUM 4.9 mmol/l (3.5-5.1); TOTAL PROTEIN 5.9 g/dL (6.3-8.2)
--- NOTE | 2019-05-10 08:39 | NUR ---
DR SON @BEDSIDE, ASSSESSING PT.
--- NOTE | 2019-05-10 09:16 | NUR ---
PT DRANK ENSURE, TOOK PO MEDICATIONS, W/OUT INCIDENT. PT REFUSED FOOD. PT VERY SLEEPING. STATING "HELP ME", UPON CLARIFICATION, PT WANTED TO BE COVERED UP MORE.
--- NOTE | 2019-05-10 10:07 | NUR ---
VISITOR @BEDSIDE, READING A BOOK. PT SLEEPING. WILL CONTINUE TO MONITOR. CALLBELL W/IN REACH.
--- NOTE | 2019-05-10 11:00 | NUR ---
BEDSIDE REPORT GIVEN TO HOISTER STUDENT Maverick/MULU @BEDSIDE. MULU QUESTIONED WETHER HER FRIEND WILL EVER BE LIKE HER OLD SELF. PODarnell STATES PT WAS WALKING AROUND OUTSIDE AT [facility] AND SHOPPING WITH HER BEFORE THE HOSPICE HOUSE NURSE CAME & TOLD THEM PT ONLY NEEDED TO GO TO HOSPICE HOUSE FOR 2 DAYS TO MANAGE PAIN & THEN SHE WOULD RETURN TO [facility]. MULU STATES THEY ARE FAMILY, NOT BY BLOOD, BUT THEY ARE ALL EACH OTHER HAS. MULU CONCERNED THAT IS OVER MEDICATED BY HOSPICE. SABLADOR HIDALGO NOTIFIED OF MULU'S CONCERNS.
--- NOTE | 2019-05-10 11:27 | NUR ---
CASE MANAGEMENT @BEDSIDE WITH POA TO ADDRESS POAS CONCERNS.
--- NOTE | 2019-05-10 12:09 | NUR ---
MULU RETURNS TO UNIT TO INFORM STAFF SHE WANTS PT TO BE DC'D TO [facility], NOT HOSPICE HOUSE.
--- NOTE | 2019-05-10 12:45 | NUR ---
DR WYATT AT BEDSIDE TO ELMO PER TO CNTINUE NS AT 125ML/HOUR. 250CC CLOUDY DARK YELLOW URINE OUTPUT DRAIN FROM MILTON BAG. BED LOCKED, IN LOWEST POSITION, CALLBELL W/IN REACH, LUNCH TRAY ON BEDSIDE TABLE. PT SLEEPING, APPEARS COMFORTABLE, SNORING RESPIRATIONS. NO S/S OF DISTRESS AT THIS TIME. VSS.
--- NOTE | 2019-05-10 13:54 | NUR ---
PT AWAKE/DROWSY. SITTING UP IN BED, STAFF FEEDING PT LUNCH. PT C/O PAIN. PT A&O TO NAME ONLY. STATES SHE IS AT MY HOUSE, UNABLE TO GIVE AGE/YEAR.
--- NOTE | 2019-05-10 14:10 | NUR ---
PT MEDICATED FOR GENERALIZED CHRONIC PAIN. REPOSITIONED. PT WISHES TO GO BACK TO SLEEP. ATE MINIMAL LUNCH.
--- NOTE | 2019-05-10 14:21 | NUR ---
FRIEND @BEDSIDE. PT RESTING.
--- NOTE | 2019-05-10 16:43 | NUR ---
DR SON CONTACTED ABOUT BP OF 76/46- MAP 56 & PTS I&O DIFFERENCE & WET LUNG SOUNDS. ADVISED TO TITRATE LEVOPHED UP.
--- NOTE | 2019-05-10 16:58 | NUR ---
MULU @BEDSIDE, TAKING VIDEOS OF PT ON HER PHONE.
--- NOTE | 2019-05-10 17:14 | NUR ---
PT COUGHING MORE THAN USUAL. READJUSTED IN BED & HOB ELEVATED OVER45 DEGRESS. PT O2 @ 89% ON 3L, PT RAISED BACK UP TO 4L NC.
--- NOTE | 2019-05-10 17:38 | NUR ---
PT MAKING COMMENTS LIKE "OWW" EVERY TIME I TOUCH THE PT & "HELP ME" & "DONT LEAVE ME". POA @BEDSIDE. RT CALLED TO BEDSIDE FOR PT EVAL.
--- NOTE | 2019-05-10 17:52 | NUR ---
DR SON @BEDSIDE WITH PT/POA. PT ONLY STATING "HELP ME". DR PAREKH SPOKE WITH POA AT NURSES STATION, EDUCATING POA ON TEST RESULTS & PROGNOSIS. POA VOICING CONCERNS THAT PT "WAS JUST FINE & FULLY FUNCTIONAL BEFORE GOING TO HOSPICE". MD & PODarnell DISCUSSED WHAT IS BEST FOR PT. POA CLAIMING SHE/PT MIGHT HAVE HAD A COUPLE MORE WEEKS BEFORE WE MADE PT LIKE THIS. DR SON EXPLAINING WHAT HOSPICE IS- TO KEEP PT COMFORTABLE. EXPLAINING AGAIN ABOUT INFECTIONS & ORGAN DAMAGE. MULU TOLD & THIS RN THAT PT WOULD NOT LIKE TO BE INTUBATED IF PT STOPS BREATHING.
--- NOTE | 2019-05-10 18:38 | NUR ---
PTS COUGHING TURNED SPORATIC. PT FEED DINNER BY STAFF; PT ATE/DRANK MINIMAL. TRIED TO TALK WITH POA; SHE WANTED CLARIFICATION ON CONVERSATION WITH MD. MULU REMAINS CERTAIN THAT NONE OF THIS WOULD BE HAPPENING IF PT HADNT GONE TO HOSPICE HOUSE, NO MATTER WHAT THIS RN SAID.
--- NOTE | 2019-05-10 18:41 | NUR ---
MULU LEFT UNIT, WISHING GIRLS A GOOD NIGHT.
--- NOTE | 2019-05-10 19:15 | NUR ---
PATIENT DROWSY, IS ABLE TO ANSWER SOME QUESTIONS, FOLLOW SOME DIRECTIONS. SHE IS LAERT AND ORIENTED TO HER NAME AND . HEAD TO TOE NURSING ASSESSMENT PERFROMED, SEE CHARTING. WHEN ASKED IF SHE IS IN PAIN SHE REPORTS HER SIDE HURTS, WHEN ATTEMPTING TO ASSESS HER SHE WOULD YELL IN PAIN AND REPORT SHE IS HURTING, PATIENT WAS OFFERED PAIN MEDICATION AND AGREES. R-UPPER CHEST PORT FLUSHED AND RETURNS BLOOD PROEPRLY, NS INFUSING AT 125 ML/HR, LEVOPHED DRIP INFUSING AT 2 0MCG/MIN OR 75 ML/HR. RAC 20 G IV INTACT, FLUSHED, SALINE LOCKED. HEELS ELEVATED WITH PILLOWS. MILTON CATHETER INTACT AND YELOW, CLOUDY URINE OBSERVED. PACED ON TELEMETRY. SATS 92% ON 4L/MIN NC. TEMP 99.8. CALL LIGHT WITHIN REACH. WILL CONTINEU TO MONITOR.
--- NOTE | 2019-05-10 19:30 | NUR ---
PATIENT WAS GIVEN PAIN MEDICATION, SHE STATES, "MY SIDE," WHEN I ASK HER IF WHERE HER PAIN IS, WHEN I ATTEMPT TO ASSESS HER SHE YELLS IN PAIN. PATIENT AGREES TO TAKE PAIN MEDICATION. PATIENT ABLE TO SWALLOW MEDICATION WITH APPLESAUCE AND DRANK SMALL AMOUNT OF APPLE JUICE WITH TOTAL ASSIST. HOB NEAR 90 DEGREES AT TIME. WILL CONTINUE TO MONITOR.
--- NOTE | 2019-05-10 20:15 | NUR ---
PROVIDED PATIENT WITH PERICARE AND MILTON CARE, PATIENT WAS INCONTINENT OF SMALL AMOUNT OF LIQUID BM. LINENS CHANGED. PATIENT WAS PULLED UP AND WAS TURNED TO HER R-SIDE, PILLOWS PLACED UNDER HEELS. WILL CONTINUE TO MONITOR.
--- NOTE | 2019-05-10 22:30 | NUR ---
PATIENT PLACED SUPINE. RESTS WITH EYES CLOSED. MUMBLES AT TIMES. HEELS ELEVATED WITH PILLOW. DOES HAVE OCASSIONAL DRY COUGH. SATS 95% ON 4L/MIN NC. HOB 45 DEGREES. CALL LIGHT WITHIN REACH. WILL CONTINUE TO MONITOR.
[2019-05-11] VITALS (14 sets, daily range): BP systolic 53–118; BP diastolic 26–83
--- NOTE | 2019-05-11 00:03 | NUR ---
PATIENT REPSOITIONED TO LEFT SIDE. PATIENT DESATS TO 80'S PERCENT. CALLED RT TO PLACE NONREBREATHER, PATIENT BREATHES THROUGH THE MOUTH. PATIENT IS ABLE TO AROUSE WITH VERBAL STIMULI BUT DOES NOT STAY AWAKE. PATIENT OCASSIONALLY COUGHS, ATTEMPTED TO SUCTION, NO PHLEGM OBSERVED.
--- NOTE | 2019-05-11 01:00 | NUR ---
PATIENT PLACED ON NONREBREATHER AT 15ML/HR, PRIOR SHE WAS ON VENTI MASK AT 35% AND WAS SATING 92% AND STARTED TO DESAT AGAIN TO THE 70'S PERCENT. NOW STATS 97% ON NRB MASK. WILL CONTINUE TO MONITOR.
--- NOTE | 2019-05-11 02:00 | NUR ---
COMPLETE BED BATH AND MILTON CARE PROVIDED. LINENS CHANGED. PATIENT IS LETHARGIC. CONTINUES TO BE ON NRB MASK, SATS GREATER THAN 95%. REPOSITIONED ON LEFT SIDE AGAIN. HEELS ELEVATED WITH PILLOW. PACED 58 BPM-60'S BPM. NO COUGH NOTED AT THIS TIME. CALL LIGHT WITHIN REACH. WILL CONTINUE TO MONITOR.
--- NOTE | 2019-05-11 04:00 | NUR ---
PATIENT WAS REPOSITIONED SUPINE. HEELS ELEVATED. REMAINS ON NRB MASK AT 15ML/HR. LETHARGIC. SUCTIONED MODERATE AMOUNT OF WHITE CLOUDY PHLEGM. HOB 45 DEGREES. WILL CONTINUE TO MONITOR.
[2019-05-11 04:58] LABS: HEMATOCRIT 29.2 % (37.0-47.0); HEMOGLOBIN 8.8 g/dl (12.0-16.0); MEAN CORPUSCULAR HGB 29.8 pG CALC (26.0-32.0); MEAN CORPUSCULAR HGB CONC 30.1 g/L CALC (32.0-36.0); RED BLOOD COUNT 2.95 mill/uL (4.20-5.60)
[2019-05-11 05:18] LABS: ALBUMIN 2.7 g/dL (3.2-5.0); BILIRUBIN, TOTAL 0.4 mg/dL (0.0-1.4); CREATININE 3.3 mg/dL (0.5-1.0)
[2019-05-11 05:36] LABS: POTASSIUM 5.6 mmol/l (3.5-5.1)
--- NOTE | 2019-05-11 06:00 | NUR ---
PATIENT WAS REPOSIIONED TO HER RIGHT SIDE. REMAINS LETHARGIC. HOB 45 DEGREES. ATTEMPTED TO SUCTION, ONLY SCANT AMOUNT. HEELS ELEVATED. SATS 95 % ON NRB MASK AT 15 ML/MIN. CALL LIGHT WITHIN REACH. WILL CONTINUE TO MONITOR.
--- NOTE | 2019-05-11 06:18 | NUR ---
NOTIFIED DR SON REGARDING PATIENT'S MAP 57 SINCE 0500. NEW ORDERS RECEIVED.
--- NOTE | 2019-05-11 07:32 | NUR ---
CONTACT PRECAUTIONS STILL ENFORCED D/T ESBL IN URINE.
--- NOTE | 2019-05-11 08:44 | NUR ---
RT @BEDSIDE FOR SUCTION; ABLE TO PULL OUT THICK YELLOW SECRETIONS. PT MOANING IN BED. WILL DISCUSS WITH .
--- NOTE | 2019-05-11 09:15 | NUR ---
DR SON @ BEDSIDE WITH PT/POA. PT IS NONVERBAL, ONLY MOANING RESPONSE. PT APPEARS TO BE IN PAIN. EDEMA INCREASING TO BILATERAL UPPER LEGS & ARMS. ABD DISTENDED. PT MOANS, LIKE IN PAIN, WHENEVER TOUCHED OR REPOSITIONED. DR SON & POA DISCUSSED TODAYS TEST RESULTS AND POA AGREED TO STOP ALL TREATMENTS- COMFORT MEASURES ONLY.
--- NOTE | 2019-05-11 09:28 | NUR ---
S: VIJAYA LEON is a 83 F who presents with altered mental status/UTI,VLAD. She has a history of hypertension, hyperlipidemia, heart disease, hypothyrodism, and congestive heart failure. All medications in patient's chart were reviewed. O: VS: BP 92/54, P 59, RR 14, T 98.7 W 96.161 kg, HT 71 inches, Scr= 3.3, CrCl= 20.3 ml/min A: Blood culture shows no growth. Urine culture shows ESBL E.coli which is sensitive to vancomycin. P: Vancomycin ordered for pharmacy to dose. Start Vancomycin 1 gram IV q24h. Vancomycin trough is drawn before the 4th dose on 05/14/19 at 0730. Vancomycin goal trough is between 15-20 mcg/ml. Pharmacy will follow and or advise on antibiotics use as needed.
--- NOTE | 2019-05-11 09:33 | NUR ---
THIS RN & LYDIA RUTLEDGE @BEDSIDE TO VERIFY COMFORT MEASURES ONLY WITH POA; INCLUDING TESTS/PROCEDURES & IV MEDICATIONS. IVF & LEVOPHED TURNED OFF. POA DENIES ANY NEEDS AT THIS TIME.
--- NOTE | 2019-05-11 10:45 | NUR ---
POA SITTING AT BEDSIDE, READING A BOOK. PT ON NRB MASK, USING ABD/ACCESSORY BREATING. WILL CONTINUE TO MONITOR.
--- NOTE | 2019-05-11 10:57 | NUR ---
NRB REMOVED. PT 79% ON RA, WITH AGONAL BREATHING. POA REMAINS AT BEDSIDE.
--- NOTE | 2019-05-11 11:38 | NUR ---
CALLED [employer] R/T SUITABILITY.
--- NOTE | 2019-05-11 12:55 | NUR ---
CALLED BACK [employer] R/T NO CALL BACK FROM [facility].
--- NOTE | 2019-05-11 13:08 | NUR ---
SPOKE WITH ANTONIETTA ORTIZ [facility] FOR RADIOGRAPHER ANGIOGRAM.
--- NOTE | 2019-05-11 13:43 | NUR ---
pt out the door with [facility].
== END 2019-05-11 13:43 | disposition expired | DRG 871 ==
LOC: ED 16:17 → ED-I 22:14 → ED 22:29 → ICU 22:30
PROVIDERS: Family Medicine; ADMIT Internal Medicine; ATTEND Internal Medicine
PROC: 0T9B70Z Drainage of Bladder with Drainage Device, Via Natural or Artificial Opening (ICD-10-PCS; principal; 2019-05-09)
DX: A41.9 Sepsis, unspecified organism (principal); R65.21 Severe sepsis with septic shock; G93.41 Metabolic encephalopathy; N17.9 Acute kidney failure, unspecified; N39.0 Urinary tract infection, site not specified; Z16.12 Extended spectrum beta lactamase (ESBL) resistance; C79.9 Secondary malignant neoplasm of unspecified site; I13.0 Hypertensive heart and chronic kidney disease with heart failure and stage 1 through stage 4 chronic kidney disease, or unspecified chronic kidney disease; E87.4 Mixed disorder of acid-base balance; K72.90 Hepatic failure, unspecified without coma; C55 Malignant neoplasm of uterus, part unspecified; I50.9 Heart failure, unspecified; N18.9 Chronic kidney disease, unspecified; B96.20 Unspecified Escherichia coli [E. coli] as the cause of diseases classified elsewhere; E78.5 Hyperlipidemia, unspecified; E03.9 Hypothyroidism, unspecified; Z51.5 Encounter for palliative care; Z66 Do not resuscitate; Z95.0 Presence of cardiac pacemaker
CPT/HCPCS: J0692; J1956; J2060